=== PATIENT | male | born 1965 | race Caucasian/White ===

== ENCOUNTER 2024-09-03 21:56 | Inpatient (IN) | payer MEDICAID, SELFPAY ==
[2024-09-03] VITALS (10 sets, daily range): BP systolic 188–235; BP diastolic 111–148; BMI 26.6; BMI 26.1
--- NOTE | 2024-09-03 20:46 | ED.CVA ---
History of Present Illness
General
Chief Complaint: CVA/TIA Symptoms
Source: ambulance crew
Exam Limitations: other (Severe aphasia)
Time Seen by Provider: 09/03/24 20:31
Nursing documentation reviewed up to this point in time: agreed with
Onset of Stroke Symptoms
Onset of symptoms known: No
Time pt last seen normal is known: Yes
Date last time pt seen normal: 09/02/24
Time last time pt seen normal: 19:00
History of Present Illness
History of Present Illness:
The patient is a 59-year-old man who presents with acute right body paralysis and severe aphasia. Patient arrives on a prehospital stroke alert. Reportedly according to his friend, he left spoke to the patient earlier 7 PM last night and the
patient sounded normal over the phone. His friend reports that he tried to call the patient today and when the patient did not answer the phone, he went over to his home to check up on him. When he found the patient his evening, patient was
crawling on the ground and was unable to speak. The patient arrives arousable with a leftward gaze and right-sided neglect. He is unable to provide a history
Past History
Past History
ED Past Medical History: None
ED Past Surgical History: Other
Social History
Tobacco: Smoker
Alcohol: Other
Drug: None
Personal: Other
Living: alone
Employment: Other
Family History
Family History: Other
Review of Systems
Review of Systems
Allergies reviewed?: Yes
Unable to obtain full review of systems at this time due to: non-verbal
Other source history: other (Friend who arrives at the bedside)
All Other Systems: Not applicable
Phy Exam
Physical Exam
Physical Exam:
Physical Exam
General: Patient arrives awake but with leftward gaze. Right facial droop
Neck: supple.
Heart: s1/s2 regular rate and rhythm, no murmur. equal radial pulses.
Lungs: no acute respiratory distress.
Abdomen: normal bowel sounds. not tender. no CVAT
Neuro: alert. All sounds are incomprehensible. Right facial droop. No movement of right arm and right leg. Leftward gaze. 5 out of 5 strength in left arm and left leg, able to follow commands
Skin: no rash
Psychiatric: well kept. interactive and cooperative
Extremities: no edema. no calf tenderness. negative homans. good distal pulses
Scores
NIH Stroke Score
Level of Consciousness: 0 - Alert
LOC Questions: 2-Neither correct
LOC Commands: 0-Performs both correctly
Best Horizontal Gaze: 0-Normal
Visual Moser: 2=Full hemianopia
Facial Palsy: 3=Complete paralysis
Motor - Right Arm: 4=No movement
Motor - Left Arm: 0=No drift 10 seconds
Motor - Right Le-No movement
Motor - Left Le-No drift 5 seconds
Limb Ataxia: 0-Absent
Sensation: 1-Mild loss
Best Language: 2-Severe aphasia
Dysarthria: 2-Severe slurring
Extinction and Inattention: 2-Total kinsey inattention
NIH Total Score:: 22
Thrombolytic Contraindication
Inclusion and Exclusion criteria reviewed: Yes
Reasons for NON-Tx with Thrombolytics ABSOLUTE Exclusions: Greater than 4.5 hrs from onset of sxs
Course
Orders/Labs/Results
Orders:
Orders
09/03/24 20:31
CT BRAIN PERF STROKE ALERT Urgent
Comment:
Reason For Exam: L sided paralysis
CT HEAD STROKE ALERT W/o Cont Urgent
Comment:
Reason For Exam: L sided paralysis
CT HEAD/NECK ANG STROKE ALERT Urgent
Comment:
Reason For Exam: L sided paralysis
09/03/24 20:45
Electrocardiogram (*1) Urgent
Reason for Study: TIA/Stroke
EKG- Treatment ONCE
09/03/24 20:52
Complete Blood Count/With Diff Urgent
Comprehensive Metabolic Panel Urgent
PTT Urgent
Prothrombin Time Urgent
09/03/24 21:20
Aspirin 300 mg RECTAL NOW STA
09/03/24 21:44
Admit/Transfer Patient As Directed
Co-Sign Provider:
Level of Care: Inpatient admission
Assign to:: Telemetry
Physician / Group: alexandrea
Diagnosis: cva
Reason for Telemetry: Arrhythmia
Date to Stop Telemetry: 09/06/24
Time to Stop Telemetry: 11:00
Reason for Hospitalization: cva
Expected length of stay greater than two midnights?: Yes
ELOS- Estimated Length of Stay in days: 2
I certify the patient meets the requirements for IP care: Yes
Code Status As Directed
Resuscitation Status: Full Code
PRN Pain Medication Management As Directed
May give lesser potent ordered pain med per pt: Yes
preference::
Protocol:: Medication orders for pain may be administered in a
manner that supports deferring to patient preference
when the pt is:
- Requesting an ordered lesser potent pain medication.
Least to most potent pain medications are defined
as: acetaminophen < NSAID < tramadol < opioids
(morphine, oxycodone, hydromorphone).
- Requesting a lesser dose of the same medication IF
ORDERED.
- Requesting a less intrusive route of administration
if both routes are prescribed by the provider (PO <
IV).
09/06/24 11:00
DC Protocol for Telemetry ONCE
Abnormal Lab Results
09/03/24 09/03/24
20:52 20:53
WBC 11.7 H 10^3/uL
(4.8-10.8)
Absolute Neuts (auto) 7.4 H 10^3/uL
(1.4-6.5)
Absolute Monos (auto) 1.1 H 10^3/uL
(0.1-0.6)
POC Glucose 69 L mg/dl
(70-99)
09/03/24 20:52
09/03/24 20:52
Vital Signs
Initial and Last Documented VS:
Initial Vital Signs
BP
235/129
09/03/24 20:54
Last Documented Vital Signs
Pulse Resp BP Pulse Ox
75 13 219/148 95
09/03/24 23:00 09/03/24 23:00 09/03/24 23:00 09/03/24 21:40
MDM/Problems Addressed
Differential Diagnosis Includes:
Intracranial hemorrhage, ischemic stroke, intra cranial tumor
MDM/Problems Addressed:
Patient presents with acute right-sided paralysis and aphasia
Acute Exacerbation and/or Progression of Chronic Illness:
Patient is acutely hypertensive which may be causing stroke
Acute Exacerbation and/or Progression of Chronic Illness: HTN
*Radiology
Radiology exam reviewed: radiology read reviewed
*Pulse Oximetry
Patient hypoxic: no
*EKG
Interpreted by ED Provider?: Yes
Interpretation: normal
Comparison EKG: no comparison EKG present
Rate: normal
Rhythm: sinus
[place]: left axis deviation
Interval: normal interval
QRS Pattern: normal QRS
Ischemia: no ischemia
*Gis Consultant Interpretation
Rate: normal
Interpretation: normal
Rhythm: sinus
*Critical Care Note
Total Time (30-74mins, 75-104mins- exclusive of procedures): 64 minutes
comment:
64 minutes of critical care given to the patient including frequent reassessments of his mental status, NIH score, speaking to his friend who is at the bedside, as well as speaking to the hospitalist at [place] and the neurology fellow at [facility]
Data Reviewed
Source: other (Friend who is at the bedside)
Prescriptions/Medications Considered But Not Given:
Considered TNK, however, patient is outside the window
Patient Management
Social determinants of health affecting care: Living situation and Strong social support
Discussion with other providers: Hospitalist and Other (Neurology fellow at [facility] who did not feel that there was a large vessel occlusion to warrant IAT. Recommended aspirin. No TNK, no Plavix)
Escalation/DeEscalation of care consider admission/obs:
Patient will be admitted for severely debilitating stroke
ED Attending Note
-
Portions of this chart may have been created with voice recognition software.� Occasional wrong word or��sound alike� substitutions may have occurred due to the inherent limitations of voice recognition software.
Discharge Plan
Departure
Patient Disposition: Admit
Date of Disposition: 09/03/24
Time of Disposition: 21:21
Admit to: Telemetry
Presentation/result/management discussed w/ accepting MD/DO: Hospitalist
Patient with high blood pressure during this ER visit?: Yes
Condition: Critical
Covid-19: Not Applicable
Discharge Problem:
Acute ischemic CVA
Interventions
Interventions:
*Risk Screen - Suicide Last Done: 09/03/24 20:37
*General Assessment Last Done: 09/03/24 20:37
*Neglect/Abuse Screening Last Done: 09/03/24 20:43
*ED COVID-19 Vaccine History Last Done: 09/03/24 20:43
*Nursing Disposition Last Done: 09/03/24 23:22
ED- Pulmonary Assessment Last Done: 09/03/24 21:06
ED- Neurological Assessment Last Done: 09/03/24 20:57
ED- Cardiac Assessment Last Done: 09/03/24 21:06
Discharge Date and Time
Discharge Date/Time: 09/03/24 23:23
[2024-09-03 20:54] LABS: Glucose - Point of Care 69 mg/dl (70-99)
[2024-09-03 21:04] LABS: % Basophils 0.5 % (0-2); % Eosinophils 2.9 % (0-6); % Immature Granulocytes 0.2 % (0-0.5); % Lymphocytes 24.1 % (20.5-51.1); % Monocytes 9.3 % (1.7-9.3); Absolute Basophils 0.1 10^3/uL (0-0.2); Absolute Eosinophils 0.3 10^3/uL (0-0.7); Absolute Lymphocytes 2.8 10^3/uL (1.2-3.4); Absolute Monocytes 1.1 10^3/uL (0.1-0.6); Absolute Neutrophils 7.4 10^3/uL (1.4-6.5); Hematocrit 51.6 % (39.0-52.0); Hemoglobin 17.6 g/dL (13.0-18.0); Mean Corp Hgb Conc. 34.1 g/dL (33.0-37.0); Mean Corpuscular Hgb 30.2 pg (27.0-31.0); Mean Corpuscular Volume 88.7 fL (80.0-94.0); Mean Platelet Volume 8.6 fL (7.4-10.4); Nucleated Red Blood Cells % 0 % (-); Platelet Count 351 10^3/uL (130-400); Red Blood Cell Count 5.82 10^6/uL (4.70-6.10); Red Cell Dist. Width 12.7 % (11.5-14.5); White Blood Cell Count 11.7 10^3/uL (4.8-10.8)
[2024-09-03 21:16] LABS: ALT (SGPT) 30 U/L (0-50); AST (SGOT) 31 U/L (17-59); Albumin 4.6 g/dl (3.5-5.0); Alkaline Phosphatase 102 U/L (38-126); Blood Urea Nitrogen 13 mg/dl (9-20); Calcium 9.8 mg/dl (8.4-10.2); Carbon Dioxide 26 mmol/L (22-30); Chloride 106 mmol/L (98-107); Estimated Creatinine Clearance 96 ml/min; Glucose 94 mg/dl (70-99); Potassium 3.8 mmol/L (3.5-5.1); Sodium 140 mmol/L (135-145); Total Bilirubin 1.2 mg/dl (0.2-1.3); Total Protein 7.7 g/dl (6.3-8.2); eGFR > 60.00
[2024-09-03 21:18] LABS: INR 0.96; PT 13.1 Sec (11.4-14.6)
[2024-09-03 21:19] LABS: APTT 30.9 Sec (23.4-35.0)
[2024-09-03] MEDS: ASPIRIN 300 MG RECTAL (21:24)
--- NOTE | 2024-09-03 21:49 | HPS.HSE ---
Addendum entered and electronically signed by Aaliyah Talley MD 09/03/24 21:51:
Hypertensive Urgency
-PRN Labetalol for keep SBP under 220
Original Note:
Family Physician
-
Family Physician: NO INTERVIEW UNKNOWN
Chief Complaint
-
neurological symptoms
History of Present Illness
59-year-old male without any past medical history presenting with severe neurological impairment.
History is obtained from patient's close friend. Patient's friend last spoke to the patient at around 5 to 7 PM last night and he was in his normal state of health then. Today he arrived at the patient's house or at 7 PM and the lights were off
and he was confused and thrashing about with difficulty speaking and facial droop.
He was noted to have significant neurological impairment with right-sided paralysis, leftward gaze preference, facial droop and inability to speak. Patient can understand language and follow some basic commands but unable to articulate. Patient is
very frustrated with his severe logical deficits.
He smokes half a pack of cigarettes per day. Does not drink alcohol or use any drugs.
No family history of strokes or cardiac problems.
No prior surgeries. 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
Medical History
Past Medical History
Past Medical History: Reports None
Past Surgical History: Reports None
Social History
Tobacco: Smoker
Alcohol: None
Drug: None
Family History
Family History: Not pertinent
Allergies / Home Medications
Allergies reflects when Allergies were last updated in [facility].
Home Medications with original date entered in [facility]
Allergy/Medication List:
Allergies
Allergy/AdvReac Type Severity Reaction Status Date / Time
NKA - No Known Allergies Allergy Unknown Uncoded 09/03/24 20:36
Review of Systems
-
History Source: Patient
A 12 point ROS was completed and negative except as noted: Yes
Constitutional: Reports No Symptoms
EENT: Reports No Symptoms
Respiratory: Reports No Symptoms
Cardiac: Reports No Symptoms
Abdomen/GI: Reports No Symptoms
: Reports No Symptoms
Musculoskeletal: Reports No Symptoms
Skin: Reports No Symptoms
Neurological: Reports See HPI
Endocrine: Reports No Symptoms
Hematologic/Lymphatic: Reports No Symptoms
Psych: Reports No Symptoms
Physical Exam
Vital Signs
Vital Signs
Pulse Resp BP Pulse Ox
85 14 219/133 94
09/03/24 21:30 09/03/24 21:30 09/03/24 21:23 09/03/24 21:30
Physical Exam
General: Well Developed, Well Nourished and No Apparent Distress
HEENT: NormoCephalic, Moist mucous membranes and Atraumatic
Respiratory: Clear
Cardiac: S1/S2 and Regular Rhythm; No Murmur or Rub
GI: Soft, Non Tender, Non Distended and Normal Bowel Sounds; No Organomegaly
Rectal: Deferred by Provider
Musculoskeletal: No Clubbing, No Cyanosis and No Edema
Skin: No Rash
Neuro: Nonfocal/grossly intact
Laboratory Results
-
09/03/24 20:52
09/03/24 20:52
Laboratory Results
PT 13.1 Sec (11.4-14.6) 09/03/24 20:52
INR 0.96 09/03/24 20:52
APTT 30.9 Sec (23.4-35.0) 09/03/24 20:52
Total Bilirubin 1.2 mg/dl (0.2-1.3) 09/03/24 20:52
AST 31 U/L (17-59) 09/03/24 20:52
ALT 30 U/L (0-50) 09/03/24 20:52
Alkaline Phosphatase 102 U/L (38-126) 09/03/24 20:52
Data Reviewed
-
Lab Data: Labs Reviewed by me
Old Records: Reviewed
Impression/Plan
-
IMPRESSION:
PLAN:
# Acute CVA with severe neurological impairment
- Last seen normal at 7 PM yesterday
- Aphasic and paralyzed on the right side with leftward gaze preference, NIH of 25
-CTA head and neck shows no acute vascular pathology, moderate old right frontal lobe infarct, old pontine lacunar infarcts
- ER spoke with neurology at [facility] who felt no intervention will be beneficial
- Rectal aspirin only was recommended, and was recommended to keep blood pressure around 220 systolic, as needed labetalol
- strict N.p.o.
-Check A1c and lipid panel
- Check speech and swallow
- Check MRI brain
- PT OT
-low dose Ativan for agitation and frustration if needed
- Neurology consulted
Active smoker
Full code
DVT prophylaxis�SCDs
N.p.o.
[2024-09-04] VITALS (9 sets, daily range): BP systolic 173–225; BP diastolic 110–140
[2024-09-04] MEDS: TRANDATE 10 MG IV ×2 (00:10→08:09)
[2024-09-04 00:27] LABS: HDL Cholesterol 63 mg/dl; LDL Cholesterol, Calculated 95 mg/dl; Total Cholesterol 175 mg/dl (50-199); Triglyceride 85 mg/dl (10-149); Very Low Density Lipoprotein 17 mg/dl (0-30)
--- NOTE | 2024-09-04 08:08 | CON.NEURO ---
Neuro Assessment/Plan
Assessment
CTA was unremarkable
CT of the head failed to demonstrate significant abnormality
CT P demonstrated significant penumbra
The above CTP is consistent with the patient's right hemibody deficit. The patient was determined by the covering telestroke service to not be a candidate for tenecteplase and was not a candidate for clot retrieval due to absence of a clot for
retrieval.
Sudden onset of right hemibody weakness after being found unresponsive for an unclear timeframe. The most likely diagnosis is a large left MCA territory acute ischemic stroke. Potential etiologies for this stroke include hypertension and
dyslipidemia
Plan
Goal of permissive hypertension until 24 hours after admission, treat blood pressures over than 220/120, then normotension
Provide medical educational materials
Rehabilitation evaluations and treatment
Provide aspirin 300 mg per rectum as the patient is not clearly able to take by mouth medications
Would not add clopidogrel to this patient's therapy due to the likely large size stroke
Eventually, when patient able to take by mouth, provide atorvastatin 80 mg daily due to LDL greater than 70
Reviewed with the patient's mother, at bedside, was likely need for parent Elder access. If the patient continues to fail access by mouth, will need to have PEG tube placed
Check echocardiogram
Eventual implanted surveillance monitor will be needed to evaluate for arrhythmias
Will follow
Consultation
Order
Date of Consultation: 09/04/24
Requesting Provider: Hospitalists
Reason for Consult: Right-sided hemiplegia, stroke alert
Subjective/Objective
Subjective Data
Date of Service: September 04, 2024
Right-handed
According to medical records, the patient's presented to the hospital's emergency department after greater than 24 hours having been seen as last known well. At that time, approximately 1700 hrs. the day before presentation patient was described as
confused by his friend. The patient was subsequently discovered as having right hemiplegia with left-sided gaze preference and aphasia. A stroke alert was activated. The patient himself is unable to provide his own medical history.
Fluid on left elbow for past 9 days ago.
Objective Data
Vital Signs
Temp Pulse Resp BP Pulse Ox
36.3 C 72 16 201/135 95
09/04/24 03:04 09/04/24 03:04 09/04/24 03:04 09/04/24 03:04 09/04/24 03:13
PT 13.1 Sec (11.4-14.6) 09/03/24 20:52
INR 0.96 09/03/24 20:52
APTT 30.9 Sec (23.4-35.0) 09/03/24 20:52
Sodium 140 mmol/L (135-145) 09/03/24 20:52
Potassium 3.8 mmol/L (3.5-5.1) 09/03/24 20:52
BUN 13 mg/dl (9-20) 09/03/24 20:52
Glucose 94 mg/dl (70-99) 09/03/24 20:52
Calcium 9.8 mg/dl (8.4-10.2) 09/03/24 20:52
LDL Cholesterol, Calc Cancelled 09/03/24 23:39
Patient Allergies
NKA - No Known Allergies Allergy (Uncoded 09/03/24 20:36)
Unknown
CVA Assessment
Onset of Stroke Symptoms
Onset of symptoms known: No
Date of onset of symptoms: 09/03/24
Time pt last seen normal is known: Yes
Date last time pt seen normal: 09/03/24
Time last time pt seen normal: 19:00
NIH Stroke Score
Level of Consciousness: 1 - Arousable
LOC Questions: 2-Neither correct
LOC Commands: 1-Performs one correctly
Best Horizontal Gaze: 1-Partial gaze palsy
Visual Moser: 0=Normal, no visual loss
Facial Palsy: 0=Normal, symmetrical
Motor - Right Arm: 4=No movement
Motor - Left Arm: 0=No drift 10 seconds
Motor - Right Le-No movement
Motor - Left Le-No drift 5 seconds
Limb Ataxia: 0-Absent
Sensation: 0-Normal
Best Language: 3-Mute/global aphasia
Dysarthria: 0-Normal
Extinction and Inattention: 0-No abnormality
NIH Total Score:: 16
Tenecteplase Contraindications
Inclusion and Exclusion criteria reviewed: Yes
Reasons for NON-Tx with Thrombolytics ABSOLUTE Exclusions: Time-out of window
IAT Contraindications: >6 hrs from onset/last seen normal and Imaging doesn't show large vessel occlusion as cause of stroke
Review of Systems
-
Unable to obtain full review of systems at this time due to: Aphasia
History Source: Patient
All other systems: Reviewed and negative
Physical Exam
-
General: No Apparent Distress and Appears Stated Age
Eyes: Round OU, [place] Conjunctivae and No Ptosis; Negative Able to visualize OU
HEENT: Anicteric and Moist Mucous Membranes
Neck: Full Range of Motion
Respiratory: No Dyspnea
Cardiac: No JVD
GI: Non-distended
Skin: Unremarkable
Extremities: No Clubbing, No Cyanosis and No Edema
Psych: Unable to Assess
Extended Neurological Exam
Mood & Affect: Unable to Assess
Attention Span & Concentration: Awake and Unable to Perform 2 Step Request; Negative Alert, Interactive or Unresponsive to Physical Stimuli
Memory: Unable to Assess
Tremor: Hand Tremor Absent and Head Tremor Absent
Involuntary Movement: None
Speech: Mute
Cranial Nerve II: Left Eye: Pupillary Reactivity Unremarkable, Pupillary Size Unremarkable and Unable to Assess Visual Moser
Cranial Nerve II: Right Eye: Pupillary Reactivity Unremarkable, Pupillary Size Unremarkable and Unable to Assess Visual Moser
Cranial Nerves III, IV, : Extraocular Movement: Other (Gaze preference to the left at times going to midline conjugately)
Cranial Nerve VII: Facial Symmetry: Normal Facial Symmetry
Cranial Nerve VIII: Hearing: Unable to Assess
Cranial Nerves IX, X: Palate Movement: Unable to Assess
Cranial Nerve XI: Shoulder Shrug: Unable to Assess
Cranial Nerve XII: Tongue Protusion: Unable to Assess
Muscle Strength, Overall: Absent (Right arm and leg movement) and Spontaneously Moves (Left arm and leg movement)
Muscle Bulk & Tone: Bulk Unremarkable and Tone Unremarkable
Pronator Drift: Negative Drift in Left Upper Extremity or Drift in Left Lower Extremity
Deep Tendon Reflexes: Trace Throughout
Cold Sensation: Unable to Assess
Vibration Sensation: Unable to Assess
Touch Sensation: Unremarkable
Coordination: Unable to Assess
Babinski Sign: Absent Bilaterally
Gait & Station: Unable to Assess
Data Reviewed
-
CT-A: Report Reviewed
CT-Perfusion: Report Reviewed and Image Reviewed
CT Head: Report Reviewed and Image Reviewed
Labs: Report Reviewed
Reviewed with: Physician and Family
Old Records: Summarized
Medications
-
Active Medications
Generic Name Dose Route Start Last Admin
Trade Name Freq PRN Reason Stop Dose Admin
Aspirin 300 mg 09/04/24 08:00
Aspirin 300 Mg Rectal Suppository RECTAL 10/02/24 07:59
DAILY ASHLY
Labetalol HCl 10 mg 09/03/24 23:39 09/04/24 00:10
Labetalol Hcl 5 Mg/1 Ml (20 Mg/4 Ml) Injection IV 10/01/24 23:38 10 mg
Q6HPRN PRN Administration
SBP> 220
Lorazepam 0.5 mg 09/03/24 23:39
Lorazepam 2 Mg/Ml Vial IV 10/01/24 23:38
Q8HPRN PRN
agitation
Sodium Chloride 0 flush 09/03/24 23:00
Sodium Chloride 0.9% (Flush) Syringe IV 10/01/24 22:59
PER PROTOCOL ASHLY
Sodium Chloride 0.25 ml 09/03/24 23:41
Nss (Pf) 10 Ml Vial For Ativan 0.5 Mg Dose IV 10/01/24 23:40
Q8HPRN PRN
IV LORAZEPAM DILUTION
Past History
Past History
ED Past Medical History: None
ED Past Surgical History: Other
Social History
Tobacco: Smoker
Alcohol: Other (unknown)
Drug: None
Personal: Other
Living: alone
Employment: Other
Family History
Family History: Other (reviewed and non-contributory)
[2024-09-04 08:50] LABS: % Basophils 0.5 % (0-2); % Eosinophils 2.2 % (0-6); % Immature Granulocytes 0.4 % (0-0.5); % Lymphocytes 12.3 % (20.5-51.1); % Monocytes 7.9 % (1.7-9.3); % Neutrophils 76.7 % (42.2-75.2); Absolute Basophils 0.1 10^3/uL (0-0.2); Absolute Eosinophils 0.3 10^3/uL (0-0.7); Absolute Immature Granulocytes 0.1 10^3/uL (0-0.05); Absolute Lymphocytes 1.7 10^3/uL (1.2-3.4); Absolute Monocytes 1.1 10^3/uL (0.1-0.6); Absolute Neutrophils 10.7 10^3/uL (1.4-6.5); Hematocrit 49.4 % (39.0-52.0); Hemoglobin 17.1 g/dL (13.0-18.0); Mean Corp Hgb Conc. 34.6 g/dL (33.0-37.0); Mean Corpuscular Hgb 30.8 pg (27.0-31.0); Mean Corpuscular Volume 88.8 fL (80.0-94.0); Mean Platelet Volume 8.8 fL (7.4-10.4); Nucleated Red Blood Cells % 0 % (-); Platelet Count 367 10^3/uL (130-400); Red Blood Cell Count 5.56 10^6/uL (4.70-6.10); Red Cell Dist. Width 12.6 % (11.5-14.5)
--- NOTE | 2024-09-04 08:55 | W.PN.HOSP.TC ---
Today's Communication/Plan
-
Rectal aspirin
Statin when able to tolerate
Echo with bubble study
Follow-up MRI
PT/OT/COMPUTER SECURITY COORDINATOR
D5 half-normal saline
NIHSS/neurochecks
Assessment / Plan
Assessment / Plan
#Acute CVA with severe neurologic impairment
-Differentials include cardioembolic disease, less likely atheroembolic v. paradoxical v. HTN
-CTA showed previous right frontal infarct and pontine lacunar infarcts; no ASCVD or LVO
-CT perfusion scan shows significant sized infarct of left parieto-occipital region
-Symptomatically has right hemiparesis, expressive aphasia, gaze abnormality
-Was started on rectal aspirin upon arrival; MRI pending; LDL 95, A1c 5.6%
-Started on permissive hypertension, PRN for SBP > 220
-NIHSS remains very high, >20
Plan
-Follow-up MRI brain without contrast
-Continue rectal aspirin and start oral statin when possible, LDL goal < 70
-Continue with permissive hypertension and as needed labetalol for SBP >220
-Continue with permissive hypertension to 24-48 hours postevent, avoid hypotension
-Monitor on telemetry and obtain TTE w/ microbubbles
-Continue to monitor NIHSS and neurocheck
-NPO, IV maintenance fluids; ongoing PT/OT/COMPUTER SECURITY COORDINATOR
-Likely will need Linq device
#Hypertension
-BP elevated here, presence of lacunar infarcts on CT likely correlate with chronic hypertension
-Not currently on any antihypertensive agents at home
-Currently undergoing permissive HTN for large CVA
-Should be started on CCB + ARB/ACEi if BP remains high after permissive HTN
#Tobacco use
-Encourage absolute smoking cessation
-Nicotine patches ordered if needed
Diet: NPO; D5 + 1/2NSS
DVT prophylaxis: SCDs, rectal aspirin
CODE STATUS: Full code
Anticipated Discharge: > 48 hours
Subjective/Interval History
-
Date of Service: September 04, 2024
Seen and examined at the bedside. No acute events reported since admission. Remains hypertensive though at goal with SBP near 220, otherwise stable and afebrile on RA
LDL returned 95, A1c 5.6%. Patient remains with significant right-sided and other neurologic deficits
MRI pending. Unable to obtain ROS due to aphasia
Objective Data
-
Labs:
Laboratory Results
09/03/24 09/04/24
20:52 08:14
WBC 11.7 H 14.0 H
Hgb 17.6 17.1
Hct 51.6 49.4
Plt Count 351 367
PT 13.1
INR 0.96
APTT 30.9
Sodium 140 Pending
Potassium 3.8 Pending
Chloride 106 Pending
Carbon Dioxide 26 Pending
BUN 13 Pending
Creatinine 0.9 Pending
Glucose 94 Pending
Calcium 9.8 Pending
Total Bilirubin 1.2 Pending
AST 31 Pending
ALT 30 Pending
Alkaline Phosphatase 102 Pending
Vital Signs:
Vital Signs
Temp Pulse Resp BP Pulse Ox
98.1 F 71 16 221/128 93
09/04/24 07:20 09/04/24 08:09 09/04/24 07:20 09/04/24 08:09 09/04/24 07:20
Review of Systems
-
Unable to obtain full review of systems at this time due to: Acuity and Patient Non-verbal
Physical Exam
-
General: Well Developed and Well Nourished; Negative Pain or Sweats
HEENT: Normocephalic, Atraumatic, Moist Mucous Membranes and Anicteric
Respiratory: Clear to Auscultation and Non Labored Respirations; Negative Accessory Resp Muscle Use
Cardiac: Regular Rhythm and S1/S2; Negative Murmur, Rub or Gallop
GI: Soft, Nontender, Nondistended and Normal Bowel Sounds
Musculoskeletal: No Clubbing, No Cyanosis and No Edema
Skin: Warm, Dry and Normal Turgor; Negative Rash
Neuro: Awake, Alert and Other (Right-sided flaccid paresis, expressive aphasia, facial droop)
Psych: Other (Frustrated)
Data Reviewed
-
MRI: Discussed with Physician and Discussed with Family
Labs: Labs Reviewed by me and Discussed with Family
[2024-09-04 09:37] LABS: ALT (SGPT) 28 U/L (0-50); AST (SGOT) 30 U/L (17-59); Albumin 4.7 g/dl (3.5-5.0); Alkaline Phosphatase 101 U/L (38-126); Blood Urea Nitrogen 13 mg/dl (9-20); Calcium 9.5 mg/dl (8.4-10.2); Carbon Dioxide 27 mmol/L (22-30); Chloride 106 mmol/L (98-107); Estimated Creatinine Clearance 108 ml/min; Glucose 113 mg/dl (70-99); Potassium 4.1 mmol/L (3.5-5.1); Sodium 141 mmol/L (135-145); Total Bilirubin 1.3 mg/dl (0.2-1.3); Total Protein 7.7 g/dl (6.3-8.2); eGFR > 60.00
[2024-09-04] MEDS: ASPIRIN 300 MG RECTAL (09:42)
[2024-09-04 09:49] LABS: Glycohemoglobin (HgbA1c) 5.6 % (4.0-5.6)
[2024-09-04] MEDS: TRANDATE 5 MG IV (10:37)
--- NOTE | 2024-09-04 13:44 | PTOTSP ---
SPEECH THERAPY SWALLOW EVALUATION:
Patient exhibits clinical signs of severe oropharyngeal dysphagia, likely acutely related to acute CVA. Patient remains at HIGH RISK for aspiration and related complications given confusion/lethargy. Recommend strict NPO at this time; Consider
temporary alternate means for nutrition/medication/hydration. Non-oral medications recommended. Oral care 3x/day and increased mobility as able/tolerated. ST to follow, determine readiness for oral diet and/or instrumental assessment of swallowing
as appropriate, and provide swallow therapy as appropriate.
Patient exhibits severe speech/language/cognitive communication impairments characterized by global aphasia with both severe expressive and receptive language impairments. Intensive ST services are indicated at the acute care level and continued
upon discharge.
RECOMMEND:
1) strict NPO
2) Consider temporary alternate means for nutrition/medication/hydration. Non-oral medications recommended
3) Oral care 3x/day and increased mobility as able/tolerated
4) Intensive ST services are indicated at the acute care level and continued upon discharge
5) ST to follow, determine readiness for oral diet and/or instrumental assessment of swallowing as appropriate
[2024-09-04] MEDS: D5/0.45%NACL 1000 IV (14:06)
[2024-09-04] MEDS: NICODERM TRANSDERMAL 14 MG TRANSDERM (15:58)
[2024-09-04] MEDS: LIPITOR PO (17:35)
[2024-09-05] VITALS (7 sets, daily range): BP systolic 174–210; BP diastolic 117–135
[2024-09-05] MEDS: D5/0.45%NACL 1000 IV ×2 (01:00→10:25)
[2024-09-05] MEDS: ATIVAN 0.5 MG IV (01:29)
[2024-09-05 08:00] LABS: % Basophils 0.6 % (0-2); % Eosinophils 4.2 % (0-6); % Immature Granulocytes 0.4 % (0-0.5); % Neutrophils 65.8 % (42.2-75.2); Absolute Basophils 0.1 10^3/uL (0-0.2); Absolute Eosinophils 0.5 10^3/uL (0-0.7); Absolute Immature Granulocytes 0.1 10^3/uL (0-0.05); Absolute Lymphocytes 2.2 10^3/uL (1.2-3.4); Absolute Monocytes 1.3 10^3/uL (0.1-0.6); Absolute Neutrophils 7.9 10^3/uL (1.4-6.5); Hematocrit 47.7 % (39.0-52.0); Hemoglobin 16.1 g/dL (13.0-18.0); Mean Corp Hgb Conc. 33.8 g/dL (33.0-37.0); Mean Corpuscular Hgb 30.4 pg (27.0-31.0); Mean Corpuscular Volume 90.2 fL (80.0-94.0); Mean Platelet Volume 8.9 fL (7.4-10.4); Nucleated Red Blood Cells % 0 % (-); Platelet Count 308 10^3/uL (130-400); Red Blood Cell Count 5.29 10^6/uL (4.70-6.10); Red Cell Dist. Width 12.7 % (11.5-14.5)
[2024-09-05] MEDS: ASPIRIN 300 MG RECTAL (08:11)
[2024-09-05 08:17] LABS: Blood Urea Nitrogen 13 mg/dl (9-20); Carbon Dioxide 25 mmol/L (22-30); Chloride 108 mmol/L (98-107); Estimated Creatinine Clearance 96 ml/min; Glucose 109 mg/dl (70-99); Sodium 140 mmol/L (135-145); eGFR > 60.00
[2024-09-05] MEDS: NICODERM TRANSDERMAL 14 MG TRANSDERM (08:23)
--- NOTE | 2024-09-05 11:11 | W.PN.HOSP.TC ---
Today's Communication/Plan
-
see A/P
Assessment / Plan
Assessment / Plan
A/P:
# Acute CVA with severe neurologic impairment
Symptomatically with right hemiparesis, expressive aphasia, gaze abnormality
Differential strokes include cardioembolic disease (most likely), versus atheroembolic versus paradoxical versus HTN
CTA showed previous right frontal infarct and pontine lacunar infarcts; no ASCVD or LVO
CT perfusion scan shows significant sized infarct of left parieto-occipital region
Follow MRI brain
Follow TTE w/ microbubbles
Cont rectal aspirin
LDL 95, A1c 5.6%
Started Lipitor 40 mg (LDL goal < 70)
Allow permissive hypertension, PRN for SBP > 220
NPO per SPL, IV maintenance fluids with D5WNSS
Continue to monitor NIHSS and neurocheck
ongoing PT/OT/[employer]YEAR STITCHER eval
Likely will need Linq device
# Hypertension
BP elevated here, presence of lacunar infarcts on CT likely correlate with chronic hypertension
Not currently on any antihypertensive agents at home
Currently undergoing permissive HTN for large CVA
Should be started on CCB + ARB/ACEi if BP remains high after permissive HTN
# Tobacco use
Encourage absolute smoking cessation
Nicotine patches ordered if needed
Diet: NPO; D5W with NSS
DVT prophylaxis: SCDs, rectal aspirin
CODE STATUS: Full code
DW mother at bedside
total time 51 min
Anticipated Discharge: > 48 hours
Subjective/Interval History
-
Date of Service: September 05, 2024
Objective Data
-
Labs:
Laboratory Results
09/05/24
06:25
WBC 12.0 H
Hgb 16.1
Hct 47.7
Plt Count 308
Sodium 140
Potassium 4.0
Chloride 108 H
Carbon Dioxide 25
BUN 13
Creatinine 0.9
Glucose 109 H
Calcium 9.0
Vital Signs:
Vital Signs
Temp Pulse Resp BP Pulse Ox
36.8 C 68 18 174/128 97
09/05/24 07:47 09/05/24 07:47 09/05/24 07:47 09/05/24 07:47 09/05/24 07:47
I&O
09/04/24 09/05/24 09/06/24
06:59 06:59 06:59
Intake Total 1200 / 1200
Balance 1200 / 1200
Review of Systems
-
Unable to obtain full review of systems at this time due to: Acuity and Patient Non-verbal
Physical Exam
-
General: Well Developed and Well Nourished; Negative Pain or Sweats
HEENT: Normocephalic, Atraumatic, Moist Mucous Membranes and Anicteric
Respiratory: Clear to Auscultation and Non Labored Respirations; Negative Accessory Resp Muscle Use
Cardiac: Regular Rhythm and S1/S2; Negative Murmur, Rub or Gallop
GI: Soft, Nontender, Nondistended and Normal Bowel Sounds
Musculoskeletal: No Clubbing, No Cyanosis and No Edema
Skin: Warm and Dry; Negative Rash
Neuro: Awake, Alert and Other (Right-sided flaccid paresis, expressive aphasia, facial droop)
Psych: Calm
Data Reviewed
-
CT Scan: Report Reviewed by me
Labs: Labs Reviewed by me
[2024-09-05] MEDS: D5/0.9% SODIUM CHLORIDE 1000 IV ×2 (12:26→22:03)
--- NOTE | 2024-09-05 15:31 | PTCARENOTE ---
Pt and his belongings were transferred to room 427. Report was given to KAEL Whatley.
[2024-09-05] MEDS: LIPITOR PO (15:53)
--- NOTE | 2024-09-05 16:40 | CM ---
Met with patient's mother to obtain information for assessment. Patient's mother stated that patient lives in a one story house with two steps to enter by himself. He was independent with all ADLs, personal care, dressing and bathing. 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 He was driving and was able to transport himself to his appointments and did all of his own shopping. He has no DME. He has not been to a SNF. He has never had VN services.
Patient is self pay. Will need to call [facility] rep. Patient will need rehab. Will await indication from medical staff.
Plan: Case management will continue to follow and assist with discharge planning. Patient will need rehab. Unclear at this time
[2024-09-06] VITALS (11 sets, daily range): BP systolic 159–218; BP diastolic 99–132; PULSE 72; BMI 26.1
[2024-09-06] MEDS: TRANDATE 10 MG IV ×3 (03:35→20:27)
--- NOTE | 2024-09-06 05:15 | PTCARENOTE ---
0335 Pt's BP: 218/132 HR: 74, prn labetolol given. Pt's condition unchanged.
0505 Pt's BP: 211/127 HR: 75. Pt's condition unchanged. David LAM notified. x1 dose hydralazine given. nsr on tele.
[2024-09-06] MEDS: APRESOLINE 5 MG IV (05:22)
[2024-09-06] MEDS: APRESOLINE 10 MG IV ×3 (07:17→23:21)
[2024-09-06] MEDS: D5/0.9% SODIUM CHLORIDE 1000 IV ×2 (07:18→18:13)
[2024-09-06 08:08] LABS: Hematocrit 46.7 % (39.0-52.0); Hemoglobin 16.1 g/dL (13.0-18.0); Mean Corp Hgb Conc. 34.5 g/dL (33.0-37.0); Mean Corpuscular Hgb 30.6 pg (27.0-31.0); Mean Corpuscular Volume 88.6 fL (80.0-94.0); Mean Platelet Volume 8.6 fL (7.4-10.4); Platelet Count 298 10^3/uL (130-400); Red Blood Cell Count 5.27 10^6/uL (4.70-6.10); Red Cell Dist. Width 12.4 % (11.5-14.5)
[2024-09-06] MEDS: NICODERM TRANSDERMAL 14 MG TRANSDERM (08:17)
[2024-09-06] MEDS: ASPIRIN 300 MG RECTAL (08:17)
[2024-09-06 08:57] LABS: Blood Urea Nitrogen 10 mg/dl (9-20); Carbon Dioxide 21 mmol/L (22-30); Chloride 109 mmol/L (98-107); Estimated Creatinine Clearance 123 ml/min; Glucose 110 mg/dl (70-99); Potassium 4.1 mmol/L (3.5-5.1); Sodium 139 mmol/L (135-145); eGFR > 60.00
--- NOTE | 2024-09-06 11:24 | W.PN.HOSP.TC ---
Today's Communication/Plan
-
Start antihypertensives (IV hydralazine 10mg TID, hold for SBP < 100); continue PT/OT/Speech
Assessment / Plan
Assessment / Plan
A/P:
# Acute CVA with severe neurologic impairment
Symptomatically with right hemiparesis, expressive aphasia, gaze abnormality
Differential strokes include cardioembolic disease (most likely), versus atheroembolic versus paradoxical versus HTN
CTA showed previous right frontal infarct and pontine lacunar infarcts; no ASCVD or LVO
CT perfusion scan shows significant sized infarct of left parieto-occipital region
MRI Brain:
1. LARGE REGION of ACUTE ISCHEMIC INFARCTION in the left middle cerebral artery territory involving the LEFT PARIETAL LOBE, POSTERIOR LEFT FRONTAL LOBE, and LEFT INSULAR CORTEX.
2. 1.0 cm subacute ischemic white matter infarct in the posterior right frontal lobe.
3. Moderate-sized chronic ischemic infarct in the anterior inferior right frontal lobe.
4. Chronic infarcts in the [place].
5. Chronic lacunar infarcts in both thalami.
6. Severe white matter leukoaraiosis in the frontal and parietal lobes.
7. Tiny chronic intraparenchymal microhemorrhages in a distribution most consistent with mild hypertensive microangiopathy.
8. Mild diffuse cerebral and cerebellar volume loss.
9. 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
TTE: negative bubble study, no valvular dysfunction
Cont rectal aspirin
LDL 95, A1c 5.6%
Started Lipitor 40 mg (LDL goal < 70)
Start antihypertensives; hydralizine 10mg TID with hold parameters
Continues to be NPO per SPL, IV maintenance fluids with D5WNSS
Continue to monitor NIHSS and neurocheck
Continue PT/OT
Likely will need Linq device OP
# Hypertension
BP elevated here, presence of lacunar infarcts on CT likely correlate with chronic hypertension
Not currently on any antihypertensive agents at home
48 hours of permissive HTN per stroke protocol; start antihypertensives today. IV for now since NPO.
Should be started on PO CCB + ARB/ACEi prior to d/c
# Tobacco use
Encourage absolute smoking cessation
Nicotine patches ordered if needed
Diet: NPO; D5W with NSS
DVT prophylaxis: SCDs, rectal aspirin
CODE STATUS: Full code
DW mother at bedside
Anticipated Discharge: 24 - 48 hours
Subjective/Interval History
-
Date of Service: September 06, 2024
Patient seen and examined at bedside. Patient's mother and friend are at bedside and note an interval improvement in the patient's neurologic status; state that he is speaking a word or two today.
Objective Data
-
Labs:
Laboratory Results
09/06/24
07:54
WBC 11.0 H
Hgb 16.1
Hct 46.7
Plt Count 298
Sodium 139
Potassium 4.1
Chloride 109 H
Carbon Dioxide 21 L
BUN 10
Creatinine 0.7
Glucose 110 H
Calcium 9.0
Vital Signs:
Vital Signs
Temp Pulse Resp BP Pulse Ox
98.3 F 91 17 165/132 92
09/06/24 07:00 09/06/24 07:00 09/06/24 07:00 09/06/24 07:00 09/06/24 08:30
I&O
09/05/24 09/06/24 09/07/24
06:59 06:59 06:59
Intake Total 1200 / 1200 1200 / 1200
Balance 1200 / 1200 1200 / 1200
Review of Systems
-
Unable to obtain full review of systems at this time due to: Acuity
Physical Exam
-
General: Slurred Speech and Other (expressive aphasia, but became tearful when talking to mother about prognosis)
Respiratory: Non Labored Respirations
Cardiac: Regular Rhythm and S1/S2
Skin: Warm and Dry
Neuro: Awake, Alert, Slurred Speech and Facial Droop
Psych: Calm (but tearful)
Data Reviewed
-
MRI: Image personally visualized and interpreted, Report Reviewed by me, Discussed with Patient and Discussed with Family
Labs: Labs Reviewed by me and Discussed with Family
--- NOTE | 2024-09-06 11:58 | CM ---
Chart reviewed and pillowcase sewer met with patient and spoke with patient's mother at bedside, [facility]. Patient has no insurance, plan will be for patient to be evaluated for disability. Plan will be to make referral to [facility]. PM&R evaluation.
Plan; Await PT/OT evaluations, needs PM&R consult. No insurance needs disability form completed.
--- NOTE | 2024-09-06 13:36 | W.PN.UPDATE ---
Update Note
Progress Note Update
I saw and evaluated the patient. I reviewed the resident�s note and agree with findings and plan as documented in the resident�s note.
A/P:
# Acute CVA with severe neurologic impairment
Symptomatically with right hemiparesis, expressive aphasia, gaze abnormality
Differential strokes include cardioembolic disease (most likely), versus atheroembolic versus paradoxical versus HTN
CTA showed previous right frontal infarct and pontine lacunar infarcts; no ASCVD or LVO
CT perfusion scan shows significant sized infarct of left parieto-occipital region
MRI brain confirmed:
1. LARGE REGION of ACUTE ISCHEMIC INFARCTION in the left middle cerebral artery territory involving the LEFT PARIETAL LOBE, POSTERIOR LEFT FRONTAL LOBE, and LEFT INSULAR CORTEX.
2. 1.0 cm subacute ischemic white matter infarct in the posterior right frontal lobe.
3. Moderate-sized chronic ischemic infarct in the anterior inferior right frontal lobe.
4. Chronic infarcts in the [place].
5. Chronic lacunar infarcts in both thalami.
6. Severe white matter leukoaraiosis in the frontal and parietal lobes.
7. Tiny chronic intraparenchymal microhemorrhages in a distribution most consistent with mild hypertensive microangiopathy.
8. Mild diffuse cerebral and cerebellar volume loss.
9. 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
TTE w/ microbubbles unrevealing:
Normal LV size and function with no regional wall motion abnormalities.
LVEF is 60-65% by visual estimation.
Moderate concentric LVH.
Normal right ventricular size and function.
No significant valvular disease.
No obvious shunting on agitated saline injection.
No prior study available for comparison.
Cont rectal aspirin
Cont daily SPL eval
Currently NPO with IV maintenance fluids D5WNSS
LDL 95, A1c 5.6%
Started Lipitor 40 mg (LDL goal < 70) when able to take PO
Continue to monitor NIHSS and neurocheck
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
Likely will need Linq device
# Hypertension
Not currently on any antihypertensive agents at home
Start IV hydralazine 10 mg TID while NPO, to change to PO when passed SPL eval
IV labetalol PRN
# Tobacco use
Encourage absolute smoking cessation
Cont Nicotine patches
Diet: NPO; D5W with NSS
DVT prophylaxis: SCDs, rectal aspirin
CODE STATUS: Full code
Extensive discussion with mother at bedside
total time 51 min
[2024-09-06] MEDS: LIPITOR 40 MG PO (17:41)
[2024-09-07] VITALS (9 sets, daily range): BP systolic 148–187; BP diastolic 82–120; O2SAT 98
[2024-09-07] MEDS: NSS (PRESERVATIVE FREE) 0.25 ML IV (02:27)
[2024-09-07] MEDS: ATIVAN 0.5 MG IV (02:27)
--- NOTE | 2024-09-07 02:33 | PTCARENOTE ---
pt very agitated, banging on side rails. yelling at nurse. Attempts made to calm patient without success. Ativan given per prn orders.
[2024-09-07] MEDS: TRANDATE 10 MG IV (03:49)
[2024-09-07] MEDS: D5/0.9% SODIUM CHLORIDE 1000 IV ×2 (03:49→14:56)
[2024-09-07 07:50] LABS: Hematocrit 46.3 % (39.0-52.0); Mean Corp Hgb Conc. 34.6 g/dL (33.0-37.0); Mean Corpuscular Hgb 30.5 pg (27.0-31.0); Mean Corpuscular Volume 88.4 fL (80.0-94.0); Mean Platelet Volume 10.2 fL (7.4-10.4); Platelet Count 253 10^3/uL (130-400); Red Blood Cell Count 5.24 10^6/uL (4.70-6.10); Red Cell Dist. Width 12.8 % (11.5-14.5); White Blood Cell Count 9.5 10^3/uL (4.8-10.8)
[2024-09-07] MEDS: APRESOLINE 10 MG IV ×3 (08:49→23:29)
[2024-09-07] MEDS: ASPIRIN 300 MG RECTAL (08:49)
[2024-09-07] MEDS: NICODERM TRANSDERMAL 14 MG TRANSDERM (08:50)
--- NOTE | 2024-09-07 09:00 | CON.MD ---
Documented by User: Adriana Yoon PA-C 09/07/24 18:05
Consultation - Medical
-
Referring Provider:�
Chief Complaint:�CVA
�
History of Present Illness:�Patient is a 59-year-old male with no significant PMH who presented to the ED on 09/06/2024 with right hemiplegia, facial droop, left-sided gaze preference and aphasia. A stroke alert was activated.
�History is obtained from patient's close friend who found him at home confused and with difficulty speaking and facial droop around 7 PM. He was not a candidate for tenecteplase due to unclear timeframe of onset of symptoms and not a candidate for
clot retrieval since that was not present.
MRI of the brain�09/05/2024 LARGE REGION of ACUTE ISCHEMIC INFARCTION in the left middle cerebral artery territory involving the LEFT PARIETAL LOBE, POSTERIOR LEFT FRONTAL LOBE, and LEFT INSULAR CORTEX.
CTA showed previous right frontal infarct and pontine lacunar infarcts; no ASCVD
CT perfusion scan shows significant sized infarct of left parieto-occipital region
Patient seen and evaluated by neurology who recommended permissive hypertension until 24 hours after admission with blood pressure over 220/120 then normotension. Aspirin 300 mg per rectum as he is not able to take by mouth medication. Would not
add clopidogrel to his therapy due to the large size stroke. Patient currently NPO. Eventually will add atorvastatin once able to take po medicines. If he continues not to tolerate p.o. will need to have PEG tube placed and eventual implant
color television console monitor to evaluate for arrhythmia
Past Medical History:�
Procedure History:�No prior surgeries.
Family History:�No family history of strokes or cardiac problems.
�
Social History:�
Functional Level Premorbidly:�Independent with all activities�
Functional Level Currently:�Transfer�min assist, attempted sidestepping but patient was unable to follow direction,
�
Tobacco: smokes�half a pack of cigarettes per day
Alcohol:�Denies�
Drug use:�Denies�
�
Lives with:�Alone
24-hour assistance available:�
Number of floors:�2
# steps to enter:�2
# steps to second floor:?
Potential First floor set up:�
Driving:�?
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
�
�
Allergies:�
Allergy/AdvReac Type Severity Reaction Status Date / Time
NKA - No Known Allergies Allergy Unknown Uncoded 09/03/24 20:36
�
Review of Systems:�
Constitutional: (x) Normal _
Eye: (x) Normal _
Ear/Nose/Throat: (x) Normal _
Respiratory: (x) Normal _
Cardiovascular: (x) abNormal _HTN
Gastrointestinal: (x) Normal _
Genitourinary: (x) Normal _
Musculoskeletal: (x) Normal _
Integumentary: (x) Normal _
Neurologic: (x) abNormal _cva, right hemiparesis, receptive and expressive aphasia
Psychiatric: (x) abNormal _labile,crying, frustration
Endocrine: (x) Normal _
Hematologic/Lymphatic: (x) Normal _
Allergic/Immunologic: (x) Normal _
�
Medications:�
Category Date Time Status
0.9% Sodium Chloride [Nss (Preservative Free)] Med 09/03/24 23:41 Active
0.25 ml IV Q8HPRN PRN
Aspirin Med 09/04/24 08:00 Active
300 mg RECTAL DAILY
Atorvastatin [Lipitor] Med 09/04/24 18:00 Active
40 mg PO QPM
Dextrose 5%/0.9%Sodchl 1000 ml [D5/0.9% Sodium Chloride Med 09/05/24 12:00 Active
] 1,000 ml
IV 100 mls/hr
Flush (0.9% Sodium Chloride) [Flush (Nss)] Med 09/03/24 23:00 Active
See Dose Instructions IV PER PROTOCOL
HydrALAZINE [Apresoline] Med 09/06/24 16:00 Active
10 mg IV Q8H
Labetalol HCl [Trandate] Med 09/03/24 23:39 Active
10 mg IV Q6HPRN PRN
Lorazepam [Ativan] Med 09/03/24 23:39 Active
0.5 mg IV Q8HPRN PRN
Nicotine [Nicoderm Transdermal] Med 09/04/24 14:00 Active
14 mg TRANSDERM DAILY
�
Vitals:�
Temp Pulse Resp BP Pulse Ox
99.1 F 71 16 167/108 96
09/07/24 07:56 09/07/24 07:56 09/07/24 07:56 09/07/24 07:56 09/07/24 07:56
Height 6 ft
Actual Weight 87.203 kg
Body Mass Index (BMI) 26.1
Was unable to fully examine patient due to aphasia patient's participation in getting very frustrated
�
Physical Exam:�
General Appearance/Observation: Well-developed, well-nourished individual in no apparent distress.�
Pain/Comfort Assessment: Aphasia
Mood/Affect: Labile, emotional, crying, very frustrated by body language
�
Integumentary/Operative Site:�
�� Pressure Ulcer Evaluation: absent over heels.� Dry skin
�
�� Other Type of Wound:
�
�
Eyes: Conjunctiva/Lids: normal���� Pupils: pupils equal round and reactive to light and Accommodation�
Ears/Nose/Throat: oral mucosa moist,� throat -not visualized.������������ Lips/Teeth/Gums: NT
Neck: No muscle spasm or tenderness�
Cardiovascular: Heart: regular, no murmur�
Pulses: dorsalis pedis 2+ bilaterally�
Respiratory: Respiratory Effort/Chest Expansion: normal������� Auscultation: Clear to auscultation bilaterally�
Gastrointestinal: abdomen not tender, no distension, normal abdominal bowel sounds
Genitourinary: Dixon�
Extremities:�Edema: None�Cyanosis: None�Trophic�changes: None
�
Neurology Exam:
Orientation: Unable to assess due to aphasia. Patient also labile and is crying. Able to mumble yes or no depending on the questions
Memory: Affected by aphasia
Repetition: Unable to assess
Comprehension: Needs repeating and cueing
Two step command: impaired
Naming: Affected by aphasia
Cranial Nerves:
�� CNII:�Pupillary light reflex: Intact����Visual Field: Unable to assess due to aphasia
�� CN III, IV, : Extraocular muscles: Intact�
�� CN V:�Facial Sensation�a�Forehead: ,�Maxilla: ,�Mandible: Unable to assess due to aphasia
�� CN VII:�Facial movement: Symmetric
�� CN VIII:�Hearing: Normal
�� CN IX/X:�Speech & swallow: Aphasia�Position of Uvula: Midline
�� CN XI:�Shoulder shrug: NT
�� CN XII:�Tongue protrusion: NT
Sensory:
�� Light touch: Unable to assess due to aphasia
��
Reflexes:
�� Biceps: 1+ bilaterally
�� Brachioradialis: 1+ bilaterally
�� Triceps: 1+ bilaterally
�� Patellar: 3+ bilaterally
�� Achilles: absent bilaterally
�� Babinski: Down going bilaterally
�� Clonus: None
�� Aakash: Negative bilaterally�
Cerebellar: Dysmetria/Ataxia: NT
Musculoskeletal:
Motor: (Manual muscle scale 0-5)�
Muscle SA EF WE EE FF FA HF KE DF EHL PF
Right� 1 1 1 1 1 1
Left 5 5 5 5 5 5
�
Tone: Normal in all extremities�
Range of Motion: Passively within normal limits in all extremities�
�
Lab Results:
Labs
WBC 9.5 10^3/uL (4.8-10.8) 09/07/24 07:06
RBC 5.24 10^6/uL (4.70-6.10) 09/07/24 07:06
Hgb 16.0 g/dL (13.0-18.0) 09/07/24 07:06
Hct 46.3 % (39.0-52.0) 09/07/24 07:06
MCV 88.4 fL (80.0-94.0) 09/07/24 07:06
MCH 30.5 pg (27.0-31.0) 09/07/24 07:06
MCHC 34.6 g/dL (33.0-37.0) 09/07/24 07:06
RDW 12.8 % (11.5-14.5) 09/07/24 07:06
Plt Count 253 10^3/uL (130-400) 09/07/24 07:06
MPV 10.2 fL (7.4-10.4) 09/07/24 07:06
Abs Immat Gran (auto) 0.1 10^3/uL (0-0.05) H 09/05/24 06:25
Absolute Neuts (auto) 7.9 10^3/uL (1.4-6.5) H 09/05/24:25
Absolute Lymphs (auto) 2.2 10^3/uL (1.2-3.4) 09/05/24 06:25
Absolute Monos (auto) 1.3 10^3/uL (0.1-0.6) H 09/05/24:25
Absolute Eos (auto) 0.5 10^3/uL (0-0.7) 09/05/24 06:25
Absolute Basos (auto) 0.1 10^3/uL (0-0.2) 09/05/24 06:25
Immature Gran % 0.4 % (0-0.5) 09/05/24:25
Neutrophils % 65.8 % (42.2-75.2) 09/05/24 06:25
Lymphocytes % 18.0 % (20.5-51.1) L 09/05/24:25
Monocytes % 11.0 % (1.7-9.3) H 09/05/24:25
Eosinophils % 4.2 % (0-6) 09/05/24:25
Basophils % 0.6 % (0-2) 06/01/25 06:25
Nucleated RBC % 0 % (-) 09/05/24 06:25
PT 13.1 Sec (11.4-14.6) 09/03/24 20:52
INR 0.96 09/03/24 20:52
APTT 30.9 Sec (23.4-35.0) 09/03/24 20:52
Sodium 139 mmol/L (135-145) 09/06/24 07:54
Potassium 4.1 mmol/L (3.5-5.1) 09/06/24 07:54
Chloride 109 mmol/L (98-107) H 09/06/24 07:54
Carbon Dioxide 21 mmol/L (22-30) L 09/06/24 07:54
BUN 10 mg/dl (9-20) 09/06/24 07:54
Creatinine 0.7 mg/dL (0.7-1.3) 09/06/24 07:54
Estimated Creat Clear 123 ml/min 09/06/24 07:54
eGFR > 60.00 09/06/24 07:54
Glucose 110 mg/dl (70-99) H 09/06/24 07:54
Hemoglobin A1c Cancelled 09/03/24 23:39
Calcium 9.0 mg/dl (8.4-10.2) 09/06/24 07:54
Total Bilirubin 1.3 mg/dl (0.2-1.3) 09/04/24 08:14
AST 30 U/L (17-59) 09/04/24 08:14
ALT 28 U/L (0-50) 09/04/24 08:14
Alkaline Phosphatase 101 U/L (38-126) 09/04/24 08:14
Total Protein 7.7 g/dl (6.3-8.2) 09/04/24 08:14
Albumin 4.7 g/dl (3.5-5.0) 09/04/24 08:14
Triglycerides Cancelled 09/03/24 23:39
Total Cholesterol Cancelled 09/03/24 23:39
LDL Cholesterol, Calc Cancelled 09/03/24 23:39
VLDL Cholesterol, Calc Cancelled 09/03/24 23:39
HDL Cholesterol Cancelled 09/03/24 23:39
POC Glucose 69 mg/dl (70-99) L 09/03/24 20:53
�
Diagnostic Results:�as per HPI�
MRI brain confirmed:
1. LARGE REGION of ACUTE ISCHEMIC INFARCTION in the left middle cerebral artery territory involving the LEFT PARIETAL LOBE, POSTERIOR LEFT FRONTAL LOBE, and LEFT INSULAR CORTEX.
2. 1.0 cm subacute ischemic white matter infarct in the posterior right frontal lobe.
3. Moderate-sized chronic ischemic infarct in the anterior inferior right frontal lobe.
4. Chronic infarcts in the [place].
5. Chronic lacunar infarcts in both thalami.
6. Severe white matter leukoaraiosis in the frontal and parietal lobes.
7. Tiny chronic intraparenchymal microhemorrhages in a distribution most consistent with mild hypertensive microangiopathy.
8. Mild diffuse cerebral and cerebellar volume loss.
9. 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
TTE w/ microbubbles unrevealing:
Normal LV size and function with no regional wall motion abnormalities.
LVEF is 60-65% by visual estimation.
Moderate concentric LVH.
Normal right ventricular size and function.
No significant valvular disease.
No obvious shunting on agitated saline injection.
No prior study available for comparison.
�
Assessment: 59-year-old male with right-sided hemiparesis, aphasia , left gaze preference, ADL and ambulatory dysfunction found to have large left acute ischemic infarct on MRI
�
Plan�
PM&R�PT/OT to increase independence with ADLs, improve balance, coordination, endurance, strength, mobility, community reintegration, decreased burden of care on others and family education.�
�
CVA: left middle cerebral artery, LEFT PARIETAL LOBE, POSTERIOR LEFT FRONTAL LOBE, and LEFT INSULAR CORTEX. Old right lacunar infarcts in both thalami and in the [place]..Per neuro: ASA 300 mg per rectum. No Plavix due to large size of stroke , statin,
and blood pressure control (SBP less than 180 and diastolic less than 100 to participate with therapy for ischemic stroke). Continue to monitor neurologic status.�
Right dominant hemiparesis: High risk for falls and sliding out of chair/bed. Safety reinforced.�
- Avoid using affected arm to help lift or pull patient as this will cause trauma to the shoulder.
Dysphagia: speech evaluation, oral care protocol, chlorhexidine rinse after meals and HS, aspiration precautions.� To undergo video swallow test. May need PEG tube.�
Dysarthria: speech evaluation�
Aphasia: Expressive and receptive. Speech evaluation�
HTN: Hydralazine 10mg TID IV q 8 hours , labetalol 10 mg IV every 6 as needed
HLD: Atorvastatin
Psych/anxiety: Psychology consult.� Lorazepam 0.5 mg IV Q8 as needed
Skin: monitor for pressure sores/rashes/lesions.�
Pain: not on any medications
Bowel: T/C bowel regimen -Colace and Senna, PRN bisacodyl.�
Bladder: Time void, PVRs, PRN straight cath.�
Tobacco Abuse: Smoking cessation counseling. Need to find out why smoking whether it is nicotine withdrawal, habit, or oral fixation.�NicoDerm transdermal 14 mg daily
GI Prophylaxis: Pantoprazole�
DVT Prophylaxis: SCDs and aspirin 300 mg rectal qd
Pulmonary: Incentive spirometry�
Safety: Continue to reinforce assistance with all transfers.�
Code Status:� Full code
Dispo�(date/plan/equipment needs): Home with family care.� Social history reviewed.�
�
Functional and Medical Goals:�Modified Independent with ADL�s, ambulation, transfers�
�
SUMMARY
Things that must be addressed in Hospital prior to discharge:�
��� Patient must be stable on oral pain medications.
��� Blood pressure must be less than 180 systolic and 100 diastolic on oral medications for 24 hours before being stable for transfer to acute rehab
��� Please comment on dvt chemoprophylaxis restrictions.
PEG tube placement or dietary recommendations by speech to be established after video swallow and patient is tolerating prior to discharge.
Cardiac evaluation. implanted color television console monitor will be needed to evaluate for arrhythmias
Right dominant hemiparesis: High risk for falls and sliding out of chair/bed. Safety reinforced.�
- Avoid using affected arm to help lift or pull patient as this will cause trauma to the shoulder. Recommending Multi podus boot-RLE.
�
Discharge Destination:�Acute inpatient rehabilitation once medically stable, and all testing and evaluations have been completed.
�
Thank you for allowing me to care for your patient. Please contact me with any questions or concerns.

Documented by User: Sai Arrieta MD 09/07/24 22:31
Consultation - Medical
-
Chief Complaint:�CVA
�
History of Present Illness:�Patient is a 59-year-old male with no significant PMH who presented to the ED on 09/06/2024 with right hemiplegia, facial droop, left-sided gaze preference and aphasia. A stroke alert was activated.
�History is obtained from patient's close friend who found him at home confused and with difficulty speaking and facial droop around 7 PM. He was not a candidate for tenecteplase due to unclear timeframe of onset of symptoms and not a candidate for
clot retrieval since that was not present.
MRI of the brain�09/05/2024 LARGE REGION of ACUTE ISCHEMIC INFARCTION in the left middle cerebral artery territory involving the LEFT PARIETAL LOBE, POSTERIOR LEFT FRONTAL LOBE, and LEFT INSULAR CORTEX.
CTA showed previous right frontal infarct and pontine lacunar infarcts; no ASCVD
CT perfusion scan shows significant sized infarct of left parieto-occipital region
Patient seen and evaluated by neurology who recommended permissive hypertension until 24 hours after admission with blood pressure over 220/120 then normotension. Aspirin 300 mg per rectum as he is not able to take by mouth medication. Would not
add clopidogrel to his therapy due to the large size stroke. Patient currently NPO. Eventually will add atorvastatin once able to take po medicines. If he continues not to tolerate p.o. will need to have PEG tube placed and eventual implant
color television console monitor to evaluate for arrhythmia
Past Medical History:�
Procedure History:�No prior surgeries.
Family History:�No family history of strokes or cardiac problems.
�
Social History:�
Functional Level Premorbidly:�Independent with all activities�
Functional Level Currently:�Transfer�min assist, attempted sidestepping but patient was unable to follow direction,
�
Tobacco: smokes�half a pack of cigarettes per day
Alcohol:�Denies�
Drug use:�Denies�
�
Lives with:�Alone
24-hour assistance available:�No
Number of floors:�1
# steps to enter:�2
Driving:�Yes
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
�
�
Allergies:�
Allergy/AdvReac Type Severity Reaction Status Date / Time
NKA - No Known Allergies Allergy Unknown Uncoded 09/03/24 20:36
�
Review of Systems:�
Constitutional: (x) Normal _
Eye: (x) Normal _
Ear/Nose/Throat: (x) Normal _
Respiratory: (x) Normal _
Cardiovascular: (x) abNormal _HTN
Gastrointestinal: (x) Normal _
Genitourinary: (x) Normal _
Musculoskeletal: (x) Normal _
Integumentary: (x) Normal _
Neurologic: (x) abNormal _cva, right hemiparesis, receptive and expressive aphasia
Psychiatric: (x) abNormal _labile,crying, frustration
Endocrine: (x) Normal _
Hematologic/Lymphatic: (x) Normal _
Allergic/Immunologic: (x) Normal _
�
Medications:�
Category Date Time Status
0.9% Sodium Chloride [Nss (Preservative Free)] Med 09/03/24 23:41 Active
0.25 ml IV Q8HPRN PRN
Aspirin Med 09/04/24 08:00 Active
300 mg RECTAL DAILY
Atorvastatin [Lipitor] Med 09/04/24 18:00 Active
40 mg PO QPM
Dextrose 5%/0.9%Sodchl 1000 ml [D5/0.9% Sodium Chloride Med 09/05/24 12:00 Active
] 1,000 ml
IV 100 mls/hr
Flush (0.9% Sodium Chloride) [Flush (Nss)] Med 09/03/24 23:00 Active
See Dose Instructions IV PER PROTOCOL
HydrALAZINE [Apresoline] Med 09/06/24 16:00 Active
10 mg IV Q8H
Labetalol HCl [Trandate] Med 09/03/24 23:39 Active
10 mg IV Q6HPRN PRN
Lorazepam [Ativan] Med 09/03/24 23:39 Active
0.5 mg IV Q8HPRN PRN
Nicotine [Nicoderm Transdermal] Med 09/04/24 14:00 Active
14 mg TRANSDERM DAILY
�
Vitals:�
Temp Pulse Resp BP Pulse Ox
99.1 F 71 16 167/108 96
09/07/24 07:56 09/07/24 07:56 09/07/24 07:56 09/07/24 07:56 09/07/24 07:56
Height 6 ft
Actual Weight 87.203 kg
Body Mass Index (BMI) 26.1
Patient was unable to be fully examined due to aphasia and limited participation because of frustration
�
Physical Exam:�
General Appearance/Observation: Well-developed, well-nourished male in no apparent distress.�
Pain/Comfort Assessment: Does not appear to be in pain, denies
Mood/Affect: Labile, emotional, crying, very frustrated by body language
�
Integumentary/Operative Site:�No open lesions noted during course of exam
�� Pressure Ulcer Evaluation: absent over heels.� Dry skin
�
�
Eyes: Conjunctiva/Lids: normal���� Pupils: pupils equal round and reactive to light and Accommodation�
Ears/Nose/Throat: oral mucosa moist,� drooling.������������ Lips/Gums: normal
Cardiovascular: Heart: regular, no murmur�
Pulses: dorsalis pedis 2+ bilaterally�
Respiratory: Respiratory Effort/Chest Expansion: normal������� Auscultation: Clear to auscultation bilaterally�
Gastrointestinal: abdomen not tender, no distension, normal abdominal bowel sounds
Genitourinary: Dixon�with clear yellow urine
Extremities:�Edema: None�Cyanosis: None�Trophic�changes: None
�
Neurology Exam:
Orientation: Unable to assess due to aphasia. Patient also labile and is crying. Able to mumble yes or no depending on the questions
Memory: Affected by aphasia
Repetition: impaired
Comprehension: Seems to understand pretty well
Two step command: intact for simple commands
Naming: impaired
Cranial Nerves:
�� CNII:�Pupillary light reflex: Intact����Visual Field: Right homonymous hemianopsia
�� CN III, IV, : Extraocular muscles: Intact�
�� CN V:�Facial Sensation: intact
�� CN VII:�Facial movement: Impaired on right
�� CN VIII:�Hearing: Normal
�� CN IX/X:�Speech & swallow: Aphasia, drooling, dysarthric�Position of Uvula: unable to assess
�� CN XI:�Shoulder shrug: decreased on right
�� CN XII:�Tongue protrusion: deviates to the left
Sensory:
�� Light touch: decreased on right vs left in extremities
��
Reflexes:
�� Biceps: 2+ bilaterally
�� Brachioradialis: 2+ bilaterally
�� Triceps: 2+ bilaterally
�� Patellar: 3+ right, 2+ left
�� Achilles: absent bilaterally
�� Babinski: Down going bilaterally
�� Clonus: None
�� Aakash: Negative on left, positive on right�
Cerebellar: Dysmetria/Ataxia: not on left
Musculoskeletal: Motor: (Manual muscle scale 0-5)�
Muscle SA EF WE EE FF FA HF KE DF EHL PF
Right� 1 1+ 0 1 0 3 3+ 1 1 1
Left 5 5 5 5 5 5 5 5 5 5
�
Tone: Normal in all extremities�
Range of Motion: Passively within normal limits in all extremities�
�
Lab Results:
Labs
WBC 9.5 10^3/uL (4.8-10.8) 09/07/24 07:06
RBC 5.24 10^6/uL (4.70-6.10) 09/07/24 07:06
Hgb 16.0 g/dL (13.0-18.0) 09/07/24 07:06
Hct 46.3 % (39.0-52.0) 09/07/24 07:06
MCV 88.4 fL (80.0-94.0) 09/07/24 07:06
MCH 30.5 pg (27.0-31.0) 09/07/24 07:06
MCHC 34.6 g/dL (33.0-37.0) 09/07/24 07:06
RDW 12.8 % (11.5-14.5) 09/07/24 07:06
Plt Count 253 10^3/uL (130-400) 09/07/24 07:06
MPV 10.2 fL (7.4-10.4) 09/07/24 07:06
Abs Immat Gran (auto) 0.1 10^3/uL (0-0.05) H 09/05/24 06:25
Absolute Neuts (auto) 7.9 10^3/uL (1.4-6.5) H 09/05/24 06:25
Absolute Lymphs (auto) 2.2 10^3/uL (1.2-3.4) 09/05/24 06:25
Absolute Monos (auto) 1.3 10^3/uL (0.1-0.6) H 09/05/24 06:25
Absolute Eos (auto) 0.5 10^3/uL (0-0.7) 09/05/24 06:25
Absolute Basos (auto) 0.1 10^3/uL (0-0.2) 09/05/24 06:25
Immature Gran % 0.4 % (0-0.5) 09/05/24 06:25
Neutrophils % 65.8 % (42.2-75.2) 09/05/24 06:25
Lymphocytes % 18.0 % (20.5-51.1) L 09/05/24 06:25
Monocytes % 11.0 % (1.7-9.3) H 09/05/24:25
Eosinophils % 4.2 % (0-6) 09/05/24:25
Basophils % 0.6 % (0-2) 09/05/24 06:25
Nucleated RBC % 0 % (-) 09/05/24 06:25
PT 13.1 Sec (11.4-14.6) 09/03/24 20:52
INR 0.96 09/03/24 20:52
APTT 30.9 Sec (23.4-35.0) 09/03/24 20:52
Sodium 139 mmol/L (135-145) 09/06/24 07:54
Potassium 4.1 mmol/L (3.5-5.1) 09/06/24 07:54
Chloride 109 mmol/L (98-107) H 09/06/24 07:54
Carbon Dioxide 21 mmol/L (22-30) L 09/06/24 07:54
BUN 10 mg/dl (9-20) 09/06/24 07:54
Creatinine 0.7 mg/dL (0.7-1.3) 09/06/24 07:54
Estimated Creat Clear 123 ml/min 09/06/24 07:54
eGFR > 60.00 09/06/24 07:54
Glucose 110 mg/dl (70-99) H 09/06/24 07:54
Hemoglobin A1c Cancelled 09/03/24 23:39
Calcium 9.0 mg/dl (8.4-10.2) 09/06/24 07:54
Total Bilirubin 1.3 mg/dl (0.2-1.3) 09/04/24 08:14
AST 30 U/L (17-59) 09/04/24 08:14
ALT 28 U/L (0-50) 09/04/24 08:14
Alkaline Phosphatase 101 U/L (38-126) 09/04/24 08:14
Total Protein 7.7 g/dl (6.3-8.2) 09/04/24 08:14
Albumin 4.7 g/dl (3.5-5.0) 09/04/24 08:14
Triglycerides Cancelled 09/03/24 23:39
Total Cholesterol Cancelled 09/03/24 23:39
LDL Cholesterol, Calc Cancelled 09/03/24 23:39
VLDL Cholesterol, Calc Cancelled 09/03/24 23:39
HDL Cholesterol Cancelled 09/03/24 23:39
POC Glucose 69 mg/dl (70-99) L 09/03/24 20:53
�
Diagnostic Results:�as per HPI�
MRI brain confirmed:
1. LARGE REGION of ACUTE ISCHEMIC INFARCTION in the left middle cerebral artery territory involving the LEFT PARIETAL LOBE, POSTERIOR LEFT FRONTAL LOBE, and LEFT INSULAR CORTEX.
2. 1.0 cm subacute ischemic white matter infarct in the posterior right frontal lobe.
3. Moderate-sized chronic ischemic infarct in the anterior inferior right frontal lobe.
4. Chronic infarcts in the [place].
5. Chronic lacunar infarcts in both thalami.
6. Severe white matter leukoaraiosis in the frontal and parietal lobes.
7. Tiny chronic intraparenchymal microhemorrhages in a distribution most consistent with mild hypertensive microangiopathy.
8. Mild diffuse cerebral and cerebellar volume loss.
9. 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
TTE w/ microbubbles unrevealing:
Normal LV size and function with no regional wall motion abnormalities.
LVEF is 60-65% by visual estimation.
Moderate concentric LVH.
Normal right ventricular size and function.
No significant valvular disease.
No obvious shunting on agitated saline injection.
No prior study available for comparison.
�
Assessment: 59-year-old M with no PMH with right-dominant hemiparesis, aphasia, left gaze preference, dysphagia, ADL and ambulatory dysfunctionfrom a large left acute ischemic infarct.
�
Plan�
PM&R�PT/OT to increase independence with ADLs, improve balance, coordination, endurance, strength, mobility, community reintegration, decreased burden of care on others and family education.�
�
CVA: left middle cerebral artery, LEFT PARIETAL LOBE, POSTERIOR LEFT FRONTAL LOBE, and LEFT INSULAR CORTEX. Old right lacunar infarcts in both thalami and in the [place]..Per neuro: ASA 300 mg per rectum. No Plavix due to large size of stroke , statin,
and blood pressure control (SBP less than 180 and diastolic less than 100 to participate with therapy for ischemic stroke). Continue to monitor neurologic status.�
Right dominant hemiparesis: High risk for falls and sliding out of chair/bed. Safety reinforced.�
- Avoid using affected arm to help lift or pull patient as this will cause trauma to the shoulder.
Dysphagia: speech evaluation, oral care protocol, aspiration precautions.� Had video swallow test 09/07. Puree with thin liquids. Change meds to oral.
Dysarthria: speech evaluation�
Aphasia: Expressive more then receptive. Speech
Right homonymous hemianopsia: discussed with patient and family, work on approaching from the right.
�
HTN: Hydralazine 10mg TID IV q 8 hours , labetalol 10 mg IV every 6 as needed
HLD: Atorvastatin
Psych/anxiety: Psychology consult.� Lorazepam 0.5 mg IV Q8 as needed
Skin: monitor for pressure sores/rashes/lesions.�
Pain: not on any medications
Bowel: Colace and Senna. PRN bisacodyl oral or suppository
Bladder: Currently with dixon, consider void trial with time void and checking PVR.
Tobacco Abuse: Smoking cessation counseling. Need to find out why smoking whether it is nicotine withdrawal, habit, or oral fixation.�NicoDerm transdermal 14 mg daily
DVT Prophylaxis: SCDs, suggest heparin DVT prophylaxis
Pulmonary: Incentive spirometry�
Safety: Continue to reinforce assistance with all transfers.�
Code Status:� Full code
Dispo�(date/plan/equipment needs): Home with family care.� Social history reviewed.�
Functional and Medical Goals:�Modified Independent with ADL�s, ambulation, transfers�
Discharge Destination:�Acute inpatient rehabilitation once medically stable, and all testing and evaluations have been completed.
�
SUMMARY
Things that must be addressed in Hospital prior to discharge:�
��� Blood pressure must be less than 180 systolic and 100 diastolic on oral medications for 24 hours before being stable for transfer to acute rehab
��� Please comment on dvt chemoprophylaxis restrictions. Suggest heparin with right sided weakness.
Monitor for calorie intake and hydration.
Cardiac evaluation. implanted color television console monitor will be needed to evaluate for arrhythmias
Right dominant hemiparesis/right neglect/right homonymous hemianopsia: High risk for falls and sliding out of chair/bed. Safety reinforced.�
- Avoid using affected arm to help lift or pull patient as this will cause trauma to the shoulder. Recommending Multi podus boot-RLE.
Dysphagia: speech evaluation, oral care protocol, aspiration precautions.� Had video swallow test 09/07. Puree with thin liquids. Change meds to oral.
Bowel: Colace and Senna. PRN bisacodyl oral or suppository
Bladder: Currently with dixon, consider void trial with time void and checking PVR.
�
Discharge Destination:�Acute inpatient rehabilitation once medically stable, and all testing and evaluations have been completed.
�
Thank you for allowing me to care for your patient. Please contact me with any questions or concerns.
Consultation
-
Date/Time Consultation Performed: 09/07/2024
Requesting Provider: Dr. Halle Stiles
Performing Provider: Dr. Sai Arrieta
Reason for Consultation: Stroke
[2024-09-07 10:37] LABS: Blood Urea Nitrogen 11 mg/dl (9-20); Calcium 8.9 mg/dl (8.4-10.2); Carbon Dioxide 21 mmol/L (22-30); Chloride 111 mmol/L (98-107); Estimated Creatinine Clearance 123 ml/min; Glucose 110 mg/dl (70-99); Sodium 140 mmol/L (135-145); eGFR > 60.00
--- NOTE | 2024-09-07 12:54 | PTOTSP ---
Videofluoroscopic swallow study
Moderate oral stage difficulties and mild pharyngeal dysphagia secondary to LEFT MCA CVA and lack of upper dentures. No aspiration occurred.
Recommend:
1. IDDSI Level 4 Puree, Thin Liquids
2. Medications: crushed in puree if medically cleared
3. Strategies: upright to 90 degrees, FULL supervision and assistance, small single sips/bites, place utensil on LEFT side of oral cavity, check for pocketing, oral care after meals
4. Oral care 3x daily + after meals
5. Dysphagia therapy at the acute care level (for instruction in use of compensations, to assess advanced solids when upper denture present, to try and increase awareness of right side of oral cavity for oral clearance).
6. Continued speech/language/cognitive tx at the acute care level. Therapy warranted after D/C
--- NOTE | 2024-09-07 15:49 | CM ---
Patient seen at bedside with herb on . Patient family members here that have not seen patient for several years due to issues within the family. Patient mother requests that contacts be herself and patient brother, Jae [phone].
CM will continue to follow for discharge planning needs.
Plan; Octaviano; Pending review by PM&R, continue to work on MA application
--- NOTE | 2024-09-07 16:59 | W.PN.HOSP.TC ---
Addendum entered and electronically signed by Micaela Thomas MD 09/07/24 19:15:
I saw and evaluated the patient independently. I reviewed the resident�s note and agree with findings and plan as documented by Dr. Valadez.
GENERAL: well developed, well nourished, male --very tearful, crying, expressive aphasia
HEENT: NC/AT
HEART: regular rate and rhythm, +S1, +S2
LUNGS : clear to auscultation bilaterally
ABDOM: soft, nontender, nondistended, + bowel sounds
EXT: no cyanosis, clubbing, or edema
NEUROLOGIC: expressive aphasia, right hemiparesis
Acute ischemic CVA with severe neurologic impairment--Symptomatically with right hemiparesis, expressive aphasia, gaze abnormality--CTA with previous infarct, CT perfusion and MRI with large left ischemic stroke--apprec neurology, echo with bubble
study neg--apprec PM&R--for acute rehab when medically stable--control BP--PT/OT--speech with IDD4/thins--LDL 95, cont statin--Continue to monitor NIHSS and neurocheck--Likely will need Linq device OP
essential Hypertension--BP elevated--s/p 24 hours of permissive HTN--start standing labetalol with holding parameters--Should be started on PO CCB + ARB/ACEi prior to d/c
Tobacco use--must quit--Nicotine patches ordered if needed
DVT proph-- SCDs
CODE STATUS-- Full code
Original Note:
Today's Communication/Plan
-
.
Assessment / Plan
Assessment / Plan
A/P:
# Acute CVA with severe neurologic impairment
Symptomatically with right hemiparesis, expressive aphasia, gaze abnormality
Differential strokes include cardioembolic disease (most likely), versus atheroembolic versus paradoxical versus HTN
CTA showed previous right frontal infarct and pontine lacunar infarcts; no ASCVD or LVO
CT perfusion scan shows significant sized infarct of left parieto-occipital region
MRI Brain:
1. LARGE REGION of ACUTE ISCHEMIC INFARCTION in the left middle cerebral artery territory involving the LEFT PARIETAL LOBE, POSTERIOR LEFT FRONTAL LOBE, and LEFT INSULAR CORTEX.
2. 1.0 cm subacute ischemic white matter infarct in the posterior right frontal lobe.
3. Moderate-sized chronic ischemic infarct in the anterior inferior right frontal lobe.
4. Chronic infarcts in the [place].
5. Chronic lacunar infarcts in both thalami.
6. Severe white matter leukoaraiosis in the frontal and parietal lobes.
7. Tiny chronic intraparenchymal microhemorrhages in a distribution most consistent with mild hypertensive microangiopathy.
8. Mild diffuse cerebral and cerebellar volume loss.
9. 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
TTE 09/07: negative bubble study, no valvular dysfunction
Cont rectal aspirin
LDL 95, A1c 5.6%
Started Lipitor 40 mg (LDL goal < 70)
Standing hydralazine started yesterday, blood pressure still elevated
- Add standing order of IV labetalol with holding parameters
IDDSI 4 per speech, IV maintenance fluids with D5WNSS
Continue to monitor NIHSS and neurocheck
Continue PT/OT; recommended acute rehab, awaiting physiatry consult
Likely will need Linq device OP
# Hypertension
BP elevated here, presence of lacunar infarcts on CT likely correlate with chronic hypertension
Not currently on any antihypertensive agents at home
48 hours of permissive HTN per stroke protocol; antihypertensive started yesterday, labetalol added today with holding parameters
Should be started on PO CCB + ARB/ACEi prior to d/c
# Tobacco use
Encourage absolute smoking cessation
Nicotine patches ordered if needed
Diet: NPO; D5W with NSS
DVT prophylaxis: SCDs, rectal aspirin
CODE STATUS: Full code
DW mother at bedside
Anticipated Discharge: 24 - 48 hours
Subjective/Interval History
-
Date of Service: September 07, 2024
Patient seen and examined, resting comfortably bed. History is limited due to expressive aphasia.
Objective Data
-
Labs:
Laboratory Results
09/07/24 09/07/24 09/07/24
07:05 07:06 09:33
WBC 9.5
Hgb 16.0
Hct 46.3
Plt Count 253
Sodium Cancelled 140
Potassium Cancelled 4.0
Chloride Cancelled 111 H
Carbon Dioxide Cancelled 21 L
BUN Cancelled 11
Creatinine Cancelled 0.7
Glucose Cancelled 110 H
Calcium Cancelled 8.9
Vital Signs:
Vital Signs
Temp Pulse Resp BP Pulse Ox
99.0 F 77 18 174/106 93
09/07/24 15:30 09/07/24 15:30 09/07/24 15:30 09/07/24 15:30 09/07/24 15:30
I&O
09/06/24 09/07/24 09/08/24
06:59 06:59 06:59
Intake Total 1200 / 1200
Output Total 1800 / 1800
Balance -600 / -600
Review of Systems
-
Unable to obtain full review of systems at this time due to: Other (Expressive aphasia)
Physical Exam
-
General: Slurred Speech
HEENT: Atraumatic and Other (Right-sided facial droop, drooling)
Respiratory: Clear to Auscultation; Negative Wheezes, Rales or Rhonchi
Cardiac: Regular Rhythm and S1/S2
GI: Soft and Nontender
Musculoskeletal: No Clubbing, No Cyanosis and No Edema
Skin: Warm and Dry
Neuro: Awake, Alert, Facial Droop and Other (Right-sided flaccid paresis)
Psych: Calm
Data Reviewed
-
Labs: Labs Reviewed by me
[2024-09-07] MEDS: TRANDATE 5 MG IV ×2 (17:09→22:31)
[2024-09-07] MEDS: LIPITOR 40 MG PO (17:10)
[2024-09-08] VITALS (9 sets, daily range): BP systolic 136–198; BP diastolic 70–115; PULSE 78; O2SAT 93
[2024-09-08] MEDS: TRANDATE 5 MG IV ×2 (04:26→10:31)
[2024-09-08 07:21] LABS: Hematocrit 47.6 % (39.0-52.0); Hemoglobin 16.4 g/dL (13.0-18.0); Mean Corp Hgb Conc. 34.5 g/dL (33.0-37.0); Mean Platelet Volume 8.8 fL (7.4-10.4); Platelet Count 257 10^3/uL (130-400); Red Blood Cell Count 5.29 10^6/uL (4.70-6.10); Red Cell Dist. Width 12.7 % (11.5-14.5); White Blood Cell Count 10.8 10^3/uL (4.8-10.8)
[2024-09-08 08:00] LABS: Blood Urea Nitrogen 12 mg/dl (9-20); Calcium 9.1 mg/dl (8.4-10.2); Carbon Dioxide 21 mmol/L (22-30); Chloride 110 mmol/L (98-107); Estimated Creatinine Clearance 123 ml/min; Glucose 100 mg/dl (70-99); Potassium 4.1 mmol/L (3.5-5.1); Sodium 140 mmol/L (135-145); eGFR > 60.00
[2024-09-08] MEDS: APRESOLINE 10 MG IV ×2 (08:00→15:47)
[2024-09-08] MEDS: ASPIRIN 300 MG RECTAL (08:01)
[2024-09-08] MEDS: NICODERM TRANSDERMAL 14 MG TRANSDERM (08:01)
--- NOTE | 2024-09-08 09:56 | W.PN.HOSP.TC ---
Addendum entered and electronically signed by Micaela Thomas MD 09/08/24 17:13:
I saw and evaluated the patient independently. I reviewed the resident�s note and agree with findings and plan as documented by Dr. Valadez.
GENERAL: well developed, well nourished, male --very tearful, crying, expressive aphasia
HEENT: NC/AT
HEART: regular rate and rhythm, +S1, +S2
LUNGS : clear to auscultation bilaterally
ABDOM: soft, nontender, nondistended, + bowel sounds
EXT: no cyanosis, clubbing, or edema
NEUROLOGIC: expressive aphasia, right hemiparesis
Acute ischemic CVA with severe neurologic impairment--Symptomatically with right hemiparesis, expressive aphasia, gaze abnormality--CTA with previous infarct, CT perfusion and MRI with large left ischemic stroke--apprec neurology, echo with bubble
study neg--apprec PM&R--for acute rehab when medically stable--control BP, changing IV meds to oral--PT/OT--speech with IDD4/thins--LDL 95, cont statin--Continue to monitor NIHSS and neurocheck--Likely will need Linq device and MARIA ESTHER per neuro, apprec
input
essential Hypertension--BP elevated--s/p 24 hours of permissive HTN--start standing labetalol with holding parameters--Should be started on PO CCB + ARB/ACEi prior to d/c
Tobacco use--must quit--Nicotine patches ordered if needed
DVT proph-- SCDs
CODE STATUS-- Full code
Original Note:
Today's Communication/Plan
-
Increase Labetalol dose. Cardiology consult for MARIA ESTHER and Loop Recorder/LINQ. Continue PT/OT.
Assessment / Plan
Assessment / Plan
A/P:
# Acute CVA with severe neurologic impairment
Symptomatically with right hemiparesis, expressive aphasia, gaze abnormality
Differential strokes include cardioembolic disease (most likely), versus atheroembolic versus paradoxical versus HTN
CTA showed previous right frontal infarct and pontine lacunar infarcts; no ASCVD or LVO
CT perfusion scan shows significant sized infarct of left parieto-occipital region
MRI Brain:
1. LARGE REGION of ACUTE ISCHEMIC INFARCTION in the left middle cerebral artery territory involving the LEFT PARIETAL LOBE, POSTERIOR LEFT FRONTAL LOBE, and LEFT INSULAR CORTEX.
2. 1.0 cm subacute ischemic white matter infarct in the posterior right frontal lobe.
3. Moderate-sized chronic ischemic infarct in the anterior inferior right frontal lobe.
4. Chronic infarcts in the [place].
5. Chronic lacunar infarcts in both thalami.
6. Severe white matter leukoaraiosis in the frontal and parietal lobes.
7. Tiny chronic intraparenchymal microhemorrhages in a distribution most consistent with mild hypertensive microangiopathy.
8. Mild diffuse cerebral and cerebellar volume loss.
9. 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
TTE 09/07: negative bubble study, no valvular dysfunction
Cont rectal aspirin
LDL 95, A1c 5.6%
Started Lipitor 40 mg (LDL goal < 70)
Standing hydralazine/labetalol started yesterday, blood pressure still elevated
- Increased dosage of Labetalol today, continue to monitor and PO transition prior to transfer
IDDSI 4 per speech; patient tolerating diet, can start oral meds (crushed in pur�e)
Continue to monitor NIHSS and neurocheck
Continue PT/OT; recommended acute rehab, awaiting physiatry consult
Likely will need Linq device OP
Cardiology consult for MARIA ESTHER and evaluation for LINQ
# Hypertension
BP elevated here, presence of lacunar infarcts on CT likely correlate with chronic hypertension
Not currently on any antihypertensive agents at home
48 hours of permissive HTN per stroke protocol completed; maintain BP goal SBP <130
Should be started on PO CCB + ARB/ACEi prior to d/c
# Tobacco use
Encourage absolute smoking cessation (1/2PPD INGOT WEIGHER)
Nicotine patches ordered if needed
Diet: IDDSM4; oral meds crushed
DVT prophylaxis: SCDs, rectal aspirin
CODE STATUS: Full code
DW mother at bedside
Anticipated Discharge: > 48 hours
Subjective/Interval History
-
Date of Service: September 08, 2024
Patient seen and examined while resting in bed. History is limited secondary to expressive aphasia. Returned later when family was at bedside, had a conversation about hospital course and plan for rehab. Also joined Dr. Torres(neuro) for a discussion
regarding the patient's MRI and prognosis. Patient exhibits right-sided facial droop, expressive aphasia, right-sided hemiparesis. Pt able to ambulate along wall with assistance this AM.
Objective Data
-
Labs:
Laboratory Results
09/08/24
07:04
WBC 10.8
Hgb 16.4
Hct 47.6
Plt Count 257
Sodium 140
Potassium 4.1
Chloride 110 H
Carbon Dioxide 21 L
BUN 12
Creatinine 0.7
Glucose 100 H
Calcium 9.1
Vital Signs:
Vital Signs
Temp Pulse Resp BP Pulse Ox
97.8 F 72 18 198/115 96
09/08/24 07:19 09/08/24 08:00 09/08/24 07:19 09/08/24 08:00 09/08/24 08:20
I&O
09/07/24 09/08/24 09/09/24
06:59 06:59 06:59
Intake Total 1200 / 1200 980 / 980
Output Total 1800 / 1800 1500 / 1500
Balance -600 / -600 -520 / -520
Review of Systems
-
Unable to obtain full review of systems at this time due to: Patient Non-verbal (Expressive aphasia)
Physical Exam
-
General: Comfortable
HEENT: Normocephalic, Atraumatic and Moist Mucous Membranes
Respiratory: Clear to Auscultation; Negative Wheezes, Rales or Rhonchi
Cardiac: Regular Rhythm and S1/S2
GI: Soft and Nontender
Musculoskeletal: No Clubbing, No Cyanosis and No Edema
Skin: Warm and Dry
Neuro: Awake, Facial Droop (Right) and Other (Expressive aphasia, right-sided hemiparesis)
Psych: Calm and Other (Intermittently tearful)
Data Reviewed
-
MRI: Discussed with Patient and Discussed with Family
Labs: Labs Reviewed by me, Discussed with Patient and Discussed with Family
--- NOTE | 2024-09-08 13:42 | W.PN.NEURO.1 ---
Today's Communication / Plan
-
imgs reviewed with patient, family and resident Dr Valadez
cardiology consult for embolic workup
call w/ ?
Neuro Assessment/Plan
Assessment
I reviewed the CTA, perfusion, and MRI imaging with the patient and multiple family members. CTA showing left MCA no LVO, there is occlusion on M3 which is medium vessel, not typically accessible due to procedure risk. Showed them the perfusion with
small core infarct and large penumbra. He was not a TNK candidate due to duration which is the textbook correct answer. While I may have considered TNK off label based on the perfusion map, it would have been unlikely to be effective because
suspected embolic etiology, the older well organized clot is less responsive to being dissolved. Showed them the MRI with DWI showing that the clot broke up into pieces and he ended up infarcting patchy areas of that territory which is a much less
bad outcome than completing the entire stroke; more hope for a good but probably not complete recovery. Additional small subacute infarct right alfred. T1 imaging pointing out numerous chronic infarcts right [place], bilateral thalamus, basal ganglia,
cortical right frontal; which were clinically silent. With this pattern, strong suspicion for embolic, advising cardiology consult for MARIA ESTHER, afib screening with loop recorder or until source is found.
aspirin/Lipitor for now
Subjective/Objective
Subjective Data
Date of Service: September 08, 2024
this morning ambulated with assistance
some residual right visual field loss
Objective Data
Vital Signs
Temp Pulse Resp BP Pulse Ox
36.6 C 78 18 173/109 95
09/08/24 11:24 09/08/24 11:24 09/08/24 11:24 09/08/24 11:24 09/08/24 11:24
Lab Results
09/08/24 07:04
09/08/24 07:04
PT 13.1 Sec (11.4-14.6) 09/03/24 20:52
INR 0.96 09/03/24 20:52
APTT 30.9 Sec (23.4-35.0) 09/03/24 20:52
Sodium 140 mmol/L (135-145) 09/08/24 07:04
Potassium 4.1 mmol/L (3.5-5.1) 09/08/24 07:04
BUN 12 mg/dl (9-20) 09/08/24 07:04
Glucose 100 mg/dl (70-99) H 09/08/24 07:04
Calcium 9.1 mg/dl (8.4-10.2) 09/08/24 07:04
LDL Cholesterol, Calc Cancelled 09/03/24 23:39
Patient Allergies
No Known Allergies Allergy (Unverified 09/07/24 16:07)
--- NOTE | 2024-09-08 16:39 | CM ---
Patient seen at bedside with mother, and physicians. Octaviano is awaiting clarification regarding MA pending status. CM provided information on form to [facility] today. CM will continue to follow for discharge planning needs.
Plan;Octaviano pending MA status.
--- NOTE | 2024-09-08 16:42 | CON.CAR ---
Addendum entered and electronically signed by Tommy Emanuel MD 09/08/24 17:46:
Patient seen and examined in collaboration with APPRENTICE/LINEMAN; agree with below.
- 59-year-old male with uncontrolled hypertension and chronic cigarette use admitted with significant multifocal CVA; Cardiology consulted to rule out cardioembolic source.
- The patient has expressive aphasia and right sided paralysis; unable to communicate.
- The patient's mother is at bedside.
- It was explained that the patient would be at increased risk for MARIA ESTHER complications which could lead to intubation; the patient's mother has expressed that neither she nor the patient would want that.
- Ultimately, the patient's mother declined the patient undergoing a MARIA ESTHER, but she is agreeable to ILR insertion tomorrow (to exclude PAF), which will be arranged.
- The patient's most likely cause of multifocal CVA is uncontrolled hypertension and smoking as the patient had a peak blood pressure of 235/129 during this admission.
Original Note:
Consultation
Consultation Request
Date/Time Consultation Requested: 09/08/24 1635
Date/Time Consultation Performed: 09/08/24 1640
Requesting Provider: Dr. Valadez
Performing Provider: Devika LAM for Dr. Emanuel
Reason for Consultation: Stroke, eval for cardiac cause
Medical History
-
Chief Complaint: Stroke symptoms
History of Present Illness:
59 y/o male with HTN (no longer on medications) and smoker who is here for stroke symptoms including right-sided paralysis, facial droop, and expressive aphasia. MRI abnormal with strokes as detailed below. We are consulted to evaluate for cardiac
cause. His mom is at bedside.
Past Medical History
Past Medical History: HTN
Social History
Tobacco: Smoker
Family History
Family History: Unable to Obtain (expressive aphasia)
Allergies / Home Medications
Allergy/AdvReac Type Severity Reaction Status Date / Time
No Known Allergies Allergy Unverified 09/07/24 16:07
Review of Systems
-
Unable to obtain full review of systems at this time due to: Other (expressive aphasia)
History Source: Other (chart)
Neurological: Other (as described in HPI)
Physical Exam
Vital Signs
Temp Pulse Resp BP Pulse Ox
98.5 F 77 18 158/97 96
09/08/24 15:50 09/08/24 15:50 09/08/24 15:50 09/08/24 15:50 09/08/24 15:50
Lab Results
09/08/24 07:04
09/08/24 07:04
Physical Exam
General: Well Developed and Well Nourished
HEENT: Anicteric
Respiratory: Clear and Non Labored Respirations
Cardiac: Regular Rhythm
Neuro: Awake and Other (expressive aphasia)
Impression / Plan
-
Stroke: MRI as below
-diagnosis is threat to bodily function, and patient with severe deficits as noted as result of stroke
-Echo: Normal LV size and function with no regional wall motion abnormalities. LVEF is 60-65% by visual estimation. Moderate concentric LVH. Normal right ventricular size and function. No significant valvular disease. No obvious shunting on
agitated saline injection.
-Dr. Emanuel and I discussed with patient/mom risk/benefits of MARIA ESTHER and loop, and we agreed to set up loop recorder for tomorrow, and no MARIA ESTHER. Will arrange.
HTN:
-severely elevated on arrival
-improved, primary team working on management
Tobacco abuse:
-needs total cessation moving forward
Data:
Brain MRI: LARGE REGION of ACUTE ISCHEMIC INFARCTION in the left middle cerebral artery territory involving the LEFT PARIETAL LOBE, POSTERIOR LEFT FRONTAL LOBE, and LEFT INSULAR CORTEX. 1.0 cm subacute ischemic white matter infarct in the posterior
right frontal lobe. Moderate-sized chronic ischemic infarct in the anterior inferior right frontal lobe. Chronic infarcts in the [place]. Chronic lacunar infarcts in both thalami. Severe white matter leukoaraiosis in the frontal and parietal lobes.
Tiny chronic intraparenchymal microhemorrhages in a distribution most consistent with mild hypertensive microangiopathy. Mild diffuse cerebral and cerebellar volume loss. 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
Data Reviewed
-
EKG: Tracing Personally Visualized and interpreted (NSR, LAD- 79 BPM)
MRI: Report Reviewed by me
Medical Tests (Nuc Med, Echo etc): Report Reviewed by me (Echo: Normal LV size and function with no regional wall motion abnormalities. LVEF is 60-65% by visual estimation. Moderate concentric LVH. Normal right ventricular size and function. No
significant valvular disease. No obvious shunting on agitated saline injection.)
Labs: Labs Reviewed by me
[2024-09-08] MEDS: LIPITOR 40 MG PO (17:25)
[2024-09-08] MEDS: TRANDATE 100 MG PO (20:21)
[2024-09-09 03:19] VITALS: BP 154/95
[2024-09-09 07:40] LABS: Hematocrit 45.6 % (39.0-52.0); Hemoglobin 15.7 g/dL (13.0-18.0); Mean Corp Hgb Conc. 34.4 g/dL (33.0-37.0); Mean Corpuscular Hgb 30.7 pg (27.0-31.0); Mean Corpuscular Volume 89.2 fL (80.0-94.0); Platelet Count 242 10^3/uL (130-400); Red Blood Cell Count 5.11 10^6/uL (4.70-6.10); Red Cell Dist. Width 12.7 % (11.5-14.5); White Blood Cell Count 8.3 10^3/uL (4.8-10.8)
[2024-09-09 08:10] VITALS: BP 181/117
[2024-09-09 08:15] LABS: Blood Urea Nitrogen 17 mg/dl (9-20); Calcium 8.9 mg/dl (8.4-10.2); Carbon Dioxide 23 mmol/L (22-30); Chloride 108 mmol/L (98-107); Estimated Creatinine Clearance 86 ml/min; Glucose 92 mg/dl (70-99); Sodium 139 mmol/L (135-145); eGFR > 60.00
[2024-09-09] MEDS: NICODERM TRANSDERMAL 14 MG TRANSDERM (08:23)
[2024-09-09] MEDS: LOW STRENGTH ASPIRIN 81 MG PO (08:27)
[2024-09-09] MEDS: TRANDATE 100 MG PO ×2 (08:27→21:00)
[2024-09-09] MEDS: MIRALAX 17 GRAMS PO (08:27)
[2024-09-09 11:39] VITALS: BP 143/91
[2024-09-09] MEDS: NORVASC 2.5 MG PO ×2 (13:15→21:01)
--- NOTE | 2024-09-09 14:32 | W.PN.CD ---
Today's Communication / Plan
-
- ILR today
Impression / Plan
-
Stroke: MRI as below
-diagnosis is threat to bodily function, and patient with severe deficits as noted as result of stroke
-Echo: Normal LV size and function with no regional wall motion abnormalities. LVEF is 60-65% by visual estimation. Moderate concentric LVH. Normal right ventricular size and function. No significant valvular disease. No obvious shunting on
agitated saline injection.
-High risk of MARIA ESTHER and deferred by discussion as per Dr. Emanuel and benjamin.
- Plan for ILR today for AF surveillance.
HTN:
-severely elevated on arrival
-improved, primary team working on management
Tobacco abuse:
-needs total cessation moving forward
Data:
Brain MRI: LARGE REGION of ACUTE ISCHEMIC INFARCTION in the left middle cerebral artery territory involving the LEFT PARIETAL LOBE, POSTERIOR LEFT FRONTAL LOBE, and LEFT INSULAR CORTEX. 1.0 cm subacute ischemic white matter infarct in the posterior
right frontal lobe. Moderate-sized chronic ischemic infarct in the anterior inferior right frontal lobe. Chronic infarcts in the [place]. Chronic lacunar infarcts in both thalami. Severe white matter leukoaraiosis in the frontal and parietal lobes.
Tiny chronic intraparenchymal microhemorrhages in a distribution most consistent with mild hypertensive microangiopathy. Mild diffuse cerebral and cerebellar volume loss. 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
Physical Exam
Vital Signs/Labs
Vital Signs
Temp Pulse Resp BP Pulse Ox
98.2 F 72 20 185/100 93
09/09/24 11:39 09/09/24 11:39 09/09/24 11:39 09/09/24 13:15 09/09/24 11:39
09/09/24 06:55
09/09/24 06:55
PT 13.1 Sec (11.4-14.6) 09/03/24 20:52
INR 0.96 09/03/24 20:52
APTT 30.9 Sec (23.4-35.0) 09/03/24 20:52
Triglycerides Cancelled 09/03/24 23:39
LDL Cholesterol, Calc Cancelled 09/03/24 23:39
VLDL Cholesterol, Calc Cancelled 09/03/24 23:39
HDL Cholesterol Cancelled 09/03/24 23:39
Physical Exam
Constitutional: No acute distress and Comfortable
EENT: Anicteric and Moist mucous membranes
Cardiovascular: Rhythm & rate is regular, Pedal edema is absent and JVD pressure is normal
Respiratory: Respiratory effort normal and Lungs clear to auscul.
GI: Soft and Normal bowel sounds
Neuro/Psych: Alert and Other (aphasic)
Other: Skin
Data Reviewed
-
Date of Service: September 09, 2024
Medical Decision Making: Reviewed Test Results, Test Interpretation and Review of Case with other Provider
EKG: Tracing Personally Visualized and interpreted
Echo: Report Reviewed by me
Labs: Labs Reviewed by me
Old Records: Reviewed
--- NOTE | 2024-09-09 14:34 | ITS.CL.IMPLP ---
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
Implant Loop
Procedure Report:
Procedure: Insertion of Loop Recorder.�
Date of the procedure: 09/09/2024
Procedure Physician: Johnny Choi MD [facility]
Indication: Cryptogenic stroke
Description of the procedure:
Patient was brought to the holding area after informed consent was obtained from the patient. The time-out was performed immediately before the procedure.
The left parasternal chest area was prepped and draped in sterile fashion with chlorhexidine prep x 3 times. Lidocaine 1% was injected subcutaneously for local anesthesia. The loop recorder was tunneled and then injected into the subcutaneous
tissue. The tunneling tool was removed leaving the loop recorder in place. The dermis was closed with steristrips and a pressure Tegaderm dressing was placed. There were no immediate complications.
Post procedure, the device was interrogated and showed good detectable P and R waves.
There were no immediate complications.
Device:
LINQII; Model: [id number]; Serial #:[id number]
R wave amplitude: 0.32 mV
Final Programming:
��������������� Tachycardia Detection: >182 bpm for 16 beats
��������������� Bradycardia Detection: 30 bpm for 12 beats, Asystole for 5 seconds.
��������������� Atrial fibrillation detection: On with > 10 min duration
Conclusion:
Successful insertion of loop recorder.
Recommendation:
Routine post-insert loop care.
--- NOTE | 2024-09-09 14:52 | W.PN.HOSP.TC ---
Addendum entered and electronically signed by Micaela Thomas MD 09/09/24 18:36:
I saw and evaluated the patient independently. I reviewed the resident�s note and agree with findings and plan as documented by Dr. Valadez.
GENERAL: well developed, well nourished, male --angry and doesn't want to work with therapy-- expressive aphasia
HEENT: NC/AT
HEART: regular rate and rhythm, +S1, +S2
LUNGS : clear to auscultation bilaterally
ABDOM: soft, nontender, nondistended, + bowel sounds
EXT: no cyanosis, clubbing, or edema
NEUROLOGIC: expressive aphasia, right hemiparesis
Acute ischemic CVA with severe neurologic impairment--Symptomatically with right hemiparesis, expressive aphasia, gaze abnormality--CTA with previous infarct, CT perfusion and MRI with large left ischemic stroke--apprec neurology, echo with bubble
study neg--apprec PM&R--for acute rehab when medically stable--control BP, changing IV meds to oral--PT/OT--speech with IDD4/thins--LDL 95, cont statin--Continue to monitor NIHSS and neurocheck--Likely will need Linq device (cards agreeable) and
MARIA ESTHER per neuro (cards not agreeable, pt too high risk), apprec input
essential Hypertension--BP elevated--s/p 24 hours of permissive HTN--start standing labetalol with holding parameters, add 2nd agent as no room with HR to increase labetalol--
Tobacco use--must quit--Nicotine patches ordered if needed
DVT proph-- SCDs
CODE STATUS-- Full code
Original Note:
Today's Communication/Plan
-
.
Assessment / Plan
Assessment / Plan
A/P:
# Acute CVA with severe neurologic impairment
Symptomatically with right hemiparesis, expressive aphasia, gaze abnormality
Differential strokes include cardioembolic disease (most likely), versus atheroembolic versus paradoxical versus HTN
CTA showed previous right frontal infarct and pontine lacunar infarcts; no ASCVD or LVO
CT perfusion scan shows significant sized infarct of left parieto-occipital region
MRI Brain:
1. LARGE REGION of ACUTE ISCHEMIC INFARCTION in the left middle cerebral artery territory involving the LEFT PARIETAL LOBE, POSTERIOR LEFT FRONTAL LOBE, and LEFT INSULAR CORTEX.
2. 1.0 cm subacute ischemic white matter infarct in the posterior right frontal lobe.
3. Moderate-sized chronic ischemic infarct in the anterior inferior right frontal lobe.
4. Chronic infarcts in the [place].
5. Chronic lacunar infarcts in both thalami.
6. Severe white matter leukoaraiosis in the frontal and parietal lobes.
7. Tiny chronic intraparenchymal microhemorrhages in a distribution most consistent with mild hypertensive microangiopathy.
8. Mild diffuse cerebral and cerebellar volume loss.
9. 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
TTE 09/07: negative bubble study, no valvular dysfunction
Cont rectal aspirin
LDL 95, A1c 5.6%
Started Lipitor 40 mg (LDL goal < 70)
Standing hydralazine/labetalol started yesterday, blood pressure still elevated
- Labetelol transitioned to PO, PO Norvasc added to regimen
IDDSI 4 per speech; patient tolerating diet, can start oral meds (crushed in pur�e)
Continue to monitor NIHSS and neurocheck
Continue PT/OT; recommended acute rehab, physiatry accepts pending LINQ
Seen by cardiology; MARIA ESTHER is not a viable option considering impaired swallowing; ILR to be placed today
# Hypertension
BP elevated here, presence of lacunar infarcts on CT likely correlate with chronic hypertension
Not currently on any antihypertensive agents at home
48 hours of permissive HTN per stroke protocol completed; maintain BP goal SBP <130
Should be started on PO CCB + ARB/ACEi prior to d/c
# Tobacco use
Encourage absolute smoking cessation (1/2PPD SOLAR PHOTOVOL[employer]IC CREW LEAD)
Nicotine patches ordered if needed
Diet: IDDSM4; oral meds crushed
DVT prophylaxis: SCDs, rectal aspirin
CODE STATUS: Full code
DW mother at bedside
Anticipated Discharge: 24 - 48 hours
Subjective/Interval History
-
Date of Service: September 09, 2024
Patient seen and examined while in bed this morning. Patient mother at bedside. History limited secondary to expressive aphasia.
Objective Data
-
Labs:
Laboratory Results
09/09/24
06:55
WBC 8.3
Hgb 15.7
Hct 45.6
Plt Count 242
Sodium 139
Potassium 4.0
Chloride 108 H
Carbon Dioxide 23
BUN 17
Creatinine 1.0
Glucose 92
Calcium 8.9
Vital Signs:
Vital Signs
Temp Pulse Resp BP Pulse Ox
98.2 F 72 20 185/100 93
09/09/24 11:39 09/09/24 11:39 09/09/24 11:39 09/09/24 13:15 09/09/24 11:39
I&O
09/08/24 09/09/24 09/10/24
06:59 06:59 06:59
Intake Total 980 / 980 720 / 720
Output Total 1500 / 1500 500 / 500
Balance -520 / -520 220 / 220
Review of Systems
-
Unable to obtain full review of systems at this time due to: Other (expressive aphasia)
Physical Exam
-
General: No Apparent Distress
HEENT: Normocephalic and Atraumatic
Respiratory: Clear to Auscultation
Cardiac: Regular Rhythm and S1/S2
GI: Soft
Musculoskeletal: No Clubbing, No Cyanosis and No Edema
Skin: Warm and Dry
Neuro: Awake and Other (right sided hemiparesis, right sided facial droop, expressive aphasia)
Psych: Calm
Data Reviewed
-
Labs: Labs Reviewed by me
--- NOTE | 2024-09-09 15:08 | CM ---
Patient seen at bedside on with daughter, ex and physician. Patient family and physician discussed at length medical concerns, patient for tap today per physician. Patient family and physician reviewed next steps and medical concerns.
Per family patient for surgery 09/14/24. CM will send additional referrals and reach out to possible facilities. CM will continue to follow for discharge planning needs.
Plan; SNF
--- NOTE | 2024-09-09 15:19 | CM ---
Patient and mother seen at bedside on . Patient with therapy at time of visit. Patient pending MA response from [facility]. CM will continue to follow for discharge planning needs.
[facility]; [facility] pending acceptance and MA status
[2024-09-09 15:47] VITALS: BP 144/95
[2024-09-09] MEDS: LIPITOR 40 MG PO (16:35)
[2024-09-09 23:04] VITALS: BP 130/90
--- NOTE | 2024-09-10 05:46 | PTCARENOTE ---
Pt extremely agitated at approx 0215, shouting and grunting loudly. Multiple staff members attempted to assist pt but pt denied need for bathroom, pain, or any physical needs by shaking head or 'waving' staff away. Upon reading prior nurses' note it
appeared pt had similar episode on 09/07 and was medicated with prn ativan. Urbano LAM made aware and also made aware that ativan is no longer on pt's MAR. Urbano LAM gave order for PO tylenol and melatonin which pt refused to take. Pt eventually fell
asleep with no further re-occurrence of agitation.
[2024-09-10 07:00] VITALS: BP 189/107
[2024-09-10] MEDS: NORVASC 2.5 MG PO (07:59)
[2024-09-10] MEDS: LOW STRENGTH ASPIRIN 81 MG PO (07:59)
[2024-09-10] MEDS: TRANDATE 100 MG PO ×2 (08:00→20:09)
[2024-09-10] MEDS: NICODERM TRANSDERMAL 14 MG TRANSDERM (08:00)
[2024-09-10] MEDS: MIRALAX 17 GRAMS PO (08:00)
[2024-09-10 08:08] LABS: Hematocrit 45.9 % (39.0-52.0); Hemoglobin 15.7 g/dL (13.0-18.0); Mean Corp Hgb Conc. 34.2 g/dL (33.0-37.0); Mean Corpuscular Hgb 30.3 pg (27.0-31.0); Mean Corpuscular Volume 88.6 fL (80.0-94.0); Mean Platelet Volume 9.1 fL (7.4-10.4); Platelet Count 258 10^3/uL (130-400); Red Blood Cell Count 5.18 10^6/uL (4.70-6.10); Red Cell Dist. Width 12.6 % (11.5-14.5); White Blood Cell Count 10.2 10^3/uL (4.8-10.8)
[2024-09-10 08:59] LABS: Blood Urea Nitrogen 19 mg/dl (9-20); Calcium 8.9 mg/dl (8.4-10.2); Carbon Dioxide 23 mmol/L (22-30); Chloride 109 mmol/L (98-107); Estimated Creatinine Clearance 96 ml/min; Glucose 89 mg/dl (70-99); Potassium 4.1 mmol/L (3.5-5.1); Sodium 140 mmol/L (135-145); eGFR > 60.00
[2024-09-10 09:15] VITALS: BP 149/95
[2024-09-10 12:32] VITALS: BP 149/95
[2024-09-10 12:41] VITALS: BP 149/95
--- NOTE | 2024-09-10 13:43 | W.PN.HOSP.TC ---
Addendum entered and electronically signed by Micaela Thomas MD 09/10/24 18:39:
I saw and evaluated the patient independently. I reviewed the resident�s note and agree with findings and plan as documented by Dr. Valadez.
GENERAL: well developed, well nourished, male-- expressive aphasia
HEENT: NC/AT
HEART: regular rate and rhythm, +S1, +S2
LUNGS : clear to auscultation bilaterally
ABDOM: soft, nontender, nondistended, + bowel sounds
EXT: no cyanosis, clubbing, or edema
NEUROLOGIC: expressive aphasia, right hemiparesis
Acute ischemic CVA with severe neurologic impairment--Symptomatically with right hemiparesis, expressive aphasia, gaze abnormality--CTA with previous infarct, CT perfusion and MRI with large left ischemic stroke--apprec neurology, echo with bubble
study neg--apprec PM&R--for acute rehab when medically stable--control BP, changing IV meds to oral--PT/OT--speech with IDD4/thins--LDL 95, cont statin--Continue to monitor NIHSS and neurocheck--Likely will need Linq device (cards agreeable) and
MARIA ESTHER per neuro (cards not agreeable, pt too high risk), apprec input
essential Hypertension--BP elevated--s/p 24 hours of permissive HTN--start standing labetalol with holding parameters, added norvasc--adjust dosing as needed
Tobacco use--must quit--Nicotine patches ordered if needed
DVT proph-- SCDs
CODE STATUS-- Full code
Original Note:
Today's Communication/Plan
-
.
Assessment / Plan
Assessment / Plan
A/P:
# Acute CVA with severe neurologic impairment
Symptomatically with right hemiparesis, expressive aphasia, gaze abnormality
Differential strokes include cardioembolic disease (most likely), versus atheroembolic versus paradoxical versus HTN
CTA showed previous right frontal infarct and pontine lacunar infarcts; no ASCVD or LVO
CT perfusion scan shows significant sized infarct of left parieto-occipital region
MRI Brain:
1. LARGE REGION of ACUTE ISCHEMIC INFARCTION in the left middle cerebral artery territory involving the LEFT PARIETAL LOBE, POSTERIOR LEFT FRONTAL LOBE, and LEFT INSULAR CORTEX.
2. 1.0 cm subacute ischemic white matter infarct in the posterior right frontal lobe.
3. Moderate-sized chronic ischemic infarct in the anterior inferior right frontal lobe.
4. Chronic infarcts in the [place].
5. Chronic lacunar infarcts in both thalami.
6. Severe white matter leukoaraiosis in the frontal and parietal lobes.
7. Tiny chronic intraparenchymal microhemorrhages in a distribution most consistent with mild hypertensive microangiopathy.
8. Mild diffuse cerebral and cerebellar volume loss.
9. 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
TTE 09/07: negative bubble study, no valvular dysfunction
Cont rectal aspirin
LDL 95, A1c 5.6%
Started Lipitor 40 mg (LDL goal < 70)
Standing hydralazine/labetalol started yesterday, blood pressure still elevated
- Labetelol transitioned to PO, PO Norvasc added to regimen
- Blood pressures continue to be intermittently elevated, will increase dosage
IDDSI 4 per speech; patient tolerating diet, can start oral meds (crushed in pur�e)
Continue to monitor NIHSS and neurocheck
Continue PT/OT; recommended acute rehab, physiatry accepts pending LINQ, BP control, BM
Seen by cardiology; ILR placed yesterday, successful
# Hypertension
BP elevated here, presence of lacunar infarcts on CT likely correlate with chronic hypertension
Not currently on any antihypertensive agents at home
48 hours of permissive HTN per stroke protocol completed; maintain BP goal SBP <130
Should be started on PO CCB + ARB/ACEi prior to d/c
# Tobacco use
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
Nicotine patches ordered if needed
Diet: IDDSM4; oral meds crushed
DVT prophylaxis: SCDs, rectal aspirin
CODE STATUS: Full code
DW mother at bedside
Anticipated Discharge: 24 - 48 hours
Subjective/Interval History
-
Date of Service: September 10, 2024
Patient seen and examined while resting in bed. History is limited secondary to expressive aphasia. Unsure if he has had a bowel movement. Mother endorses it may have been a couple of days since last BM. Mother believes patient is in a better mood
today.
Objective Data
-
Labs:
Laboratory Results
09/10/24
07:22
WBC 10.2
Hgb 15.7
Hct 45.9
Plt Count 258
Sodium 140
Potassium 4.1
Chloride 109 H
Carbon Dioxide 23
BUN 19
Creatinine 0.9
Glucose 89
Calcium 8.9
Vital Signs:
Vital Signs
Temp Pulse Resp BP Pulse Ox
98.8 F 69 17 149/95 100
09/10/24 07:00 09/10/24 09:15 09/10/24 07:00 09/10/24 09:15 09/10/24 07:00
I&O
09/09/24 09/10/24 09/11/24
06:59 06:59 06:59
Intake Total 720 / 720
Output Total 500 / 500 700 / 700
Balance 220 / 220 -700 / -700
Review of Systems
-
Unable to obtain full review of systems at this time due to: Other (expressive aphasia)
Physical Exam
-
General: Well Developed, Well Nourished, No Apparent Distress and Comfortable
HEENT: Normocephalic, Atraumatic and Moist Mucous Membranes
Respiratory: Clear to Auscultation; Negative Wheezes, Rales or Rhonchi
Cardiac: Regular Rhythm, S1/S2 and Other (ILR in place; surgical site is clean/dry/intact and without signs of infection)
GI: Soft and Nontender
Musculoskeletal: No Clubbing, No Cyanosis and No Edema
Skin: Warm and Dry
Neuro: Awake and Other (right sided hemiparesis, expressive aphasia, right sided facial droop)
Psych: Calm
[2024-09-10 15:00] VITALS: BP 158/92
--- NOTE | 2024-09-10 16:08 | PTOTSP ---
MORTGAGE CLOSING CLERK NOTE
Printed out aphasia communication strategies and posted on board in room for family. Please use field=2 flip book/communication board. Accuracy decreases as picture field increases with Augmentative and Alternative Communication (AAC). See below.
Discussed with staff.
AAC
Field=2: 100% accuracy
Field=9 (paper board): 69% accuracy
Field 16 (large AAC board): 25% accuracy
--- NOTE | 2024-09-10 16:09 | CM ---
Patient seen at bedside with patient mother and physicians. Patient MA application has been submitted [facility]ia[facility] and CM updated [facility] liaision. [facility] to review MA application and will update CM as soon as able. CM will continue to follow
for discharge planning needs.
Plan; [facility]; pending MA number
--- NOTE | 2024-09-10 16:11 | PTOTSP ---
FIELD CONTACT PERSON Note
Printed out aphasia communication strategies and posted on board in room for family. Please use field=2 flip book/communication board. Accuracy decreases as picture field increases with Augmentative and Alternative Communication (AAC). See below.
Discussed with staff.
AAC
Field=2 (flip board): 100% accuracy
Field=9 (laminated board from FIELD CONTACT PERSON office): 69% accuracy
Field 16 (paper board in room): 25% accuracy
[2024-09-10] MEDS: LIPITOR 40 MG PO (18:08)
[2024-09-10] MEDS: NORVASC 5 MG PO (20:10)
[2024-09-10 23:45] VITALS: BP 157/97
[2024-09-11 07:00] VITALS: BP 177/106
[2024-09-11] MEDS: NORVASC 5 MG PO ×2 (08:16→20:30)
[2024-09-11] MEDS: NICODERM TRANSDERMAL 14 MG TRANSDERM (08:17)
[2024-09-11] MEDS: MIRALAX 17 GRAMS PO (08:17)
[2024-09-11] MEDS: LOW STRENGTH ASPIRIN 81 MG PO (08:17)
[2024-09-11] MEDS: TRANDATE 100 MG PO ×2 (08:17→20:30)
--- NOTE | 2024-09-11 11:56 | CM ---
ECHO reviewed chart, MA application has been submitted, [facility] to review MA application, plan accept at [facility] pending MA number. CM will continue to follow for all discharge planning needs.
Plan; [facility], pending MA number
--- NOTE | 2024-09-11 12:15 | W.PN.HOSP.TC ---
Today's Communication/Plan
-
add hydralazine
monitor for BMs
Assessment / Plan
Assessment / Plan
pt is a 59 year old male
Acute ischemic CVA with severe neurologic impairment--Symptomatically with right hemiparesis, expressive aphasia, gaze abnormality--CTA with previous infarct, CT perfusion and MRI with large left ischemic stroke--apprec neurology, echo with bubble
study neg--apprec PM&R--for acute rehab when medically stable--control BP, changing IV meds to oral--PT/OT--speech with IDD4/thins--LDL 95, cont statin--Continue to monitor NIHSS and neurocheck--Likely will need Linq device (cards agreeable) and
MARIA ESTHER per neuro (cards not agreeable, pt too high risk), apprec input
essential Hypertension--BP elevated--s/p 24 hours of permissive HTN--cont labetalol, added norvasc, adding hydralazine--adjust dosing as needed
no documented bowel movements--cont bowel regimen
Tobacco use--must quit--Nicotine patches ordered if needed
dispo--anticipate Friday?
DVT proph-- SCDs
CODE STATUS-- Full code
Anticipated Discharge: > 48 hours
Subjective/Interval History
-
Date of Service: September 11, 2024
pt sleeping, did not wake
Objective Data
-
Vital Signs:
max temp for 24 hours
09/11/24
07:00
Temp 99.5 F
Vital Signs
Temp Pulse Resp BP Pulse Ox
99.5 F 70 12 177/106 93
09/11/24 07:00 09/11/24 07:00 09/11/24 07:00 09/11/24 07:00 09/11/24 07:00
I&O
09/10/24 09/11/24 09/12/24
06:59 06:59 06:59
Intake Total 660 / 660
Output Total 700 / 700 900 / 900
Balance -700 / -700 -240 / -240
Review of Systems
-
Unable to obtain full review of systems at this time due to: Other (sleeping did not wake)
Physical Exam
-
General: Well Developed, Well Nourished and No Apparent Distress
HEENT: Normocephalic and Atraumatic
Respiratory: Clear to Auscultation; Negative Wheezes or Rhonchi
Cardiac: Regular Rhythm and S1/S2; Negative Murmur
GI: Soft, Nontender, Nondistended and Normal Bowel Sounds
Musculoskeletal: No Clubbing, No Cyanosis and No Edema
Neuro: Other (expressive aphasia, right hemiparesis)
[2024-09-11 15:00] VITALS: BP 155/87
[2024-09-11] MEDS: LIPITOR 40 MG PO (17:34)
[2024-09-11] MEDS: APRESOLINE 25 MG PO (20:30)
[2024-09-11 23:31] VITALS: BP 149/77
[2024-09-12 06:47] LABS: Hematocrit 44.6 % (39.0-52.0); Hemoglobin 15.3 g/dL (13.0-18.0); Mean Corp Hgb Conc. 34.3 g/dL (33.0-37.0); Mean Corpuscular Hgb 30.5 pg (27.0-31.0); Mean Corpuscular Volume 88.8 fL (80.0-94.0); Mean Platelet Volume 8.8 fL (7.4-10.4); Platelet Count 292 10^3/uL (130-400); Red Blood Cell Count 5.02 10^6/uL (4.70-6.10); Red Cell Dist. Width 12.5 % (11.5-14.5); White Blood Cell Count 9.8 10^3/uL (4.8-10.8)
[2024-09-12 07:00] VITALS: BP 167/97
[2024-09-12 07:13] LABS: ALT (SGPT) 40 U/L (0-50); AST (SGOT) 28 U/L (17-59); Albumin 3.7 g/dl (3.5-5.0); Alkaline Phosphatase 109 U/L (38-126); Blood Urea Nitrogen 15 mg/dl (9-20); Calcium 8.9 mg/dl (8.4-10.2); Carbon Dioxide 26 mmol/L (22-30); Chloride 109 mmol/L (98-107); Estimated Creatinine Clearance 108 ml/min; Glucose 101 mg/dl (70-99); Magnesium 2.1 mg/dl (1.6-2.3); Potassium 4.5 mmol/L (3.5-5.1); Sodium 141 mmol/L (135-145); Total Bilirubin 0.9 mg/dl (0.2-1.3); Total Protein 6.6 g/dl (6.3-8.2); eGFR > 60.00
[2024-09-12] MEDS: LOW STRENGTH ASPIRIN 81 MG PO (08:45)
[2024-09-12] MEDS: TRANDATE 100 MG PO ×2 (08:45→21:16)
[2024-09-12] MEDS: APRESOLINE 25 MG PO ×3 (08:45→21:16)
[2024-09-12] MEDS: NORVASC 5 MG PO ×2 (08:45→21:16)
[2024-09-12] MEDS: NICODERM TRANSDERMAL 14 MG TRANSDERM (08:46)
[2024-09-12] MEDS: MIRALAX 17 GRAMS PO (08:46)
--- NOTE | 2024-09-12 13:32 | W.PN.HOSP.TC ---
Today's Communication/Plan
-
adding to bowel regimen
d/c planning [place]?
Assessment / Plan
Assessment / Plan
pt is a 59 year old male
Acute ischemic CVA with severe neurologic impairment--Symptomatically with right hemiparesis, expressive aphasia, gaze abnormality--CTA with previous infarct, CT perfusion and MRI with large left ischemic stroke--apprec neurology, echo with bubble
study neg---for acute rehab when medically stable--control BP--PT/OT--speech with IDD4/thins-- cont statin--stop NIHSS and neurocheck--s/p Linq device
essential Hypertension--BP elevated--s/p 24 hours of permissive HTN--cont labetalol, added norvasc, adding hydralazine--adjust dosing as needed
constipation--no documented bowel movements--cont bowel regimen--on miralax--added colace and senna
Tobacco use--must quit--Nicotine patches ordered if needed
dispo--anticipate [place] Friday?
DVT proph-- SCDs
CODE STATUS-- Full code
Anticipated Discharge: 24 - 48 hours
Subjective/Interval History
-
Date of Service: September 12, 2024
no change--expressive aphasia
Objective Data
-
Labs:
Laboratory Results
09/12/24
06:26
WBC 9.8
Hgb 15.3
Hct 44.6
Plt Count 292
Sodium 141
Potassium 4.5
Chloride 109 H
Carbon Dioxide 26
BUN 15
Creatinine 0.8
Glucose 101 H
Calcium 8.9
Total Bilirubin 0.9
AST 28
ALT 40
Alkaline Phosphatase 109
Vital Signs:
max temp for 24 hours
09/11/24
07:00
Temp 99.5 F
Vital Signs
Temp Pulse Resp BP Pulse Ox
97.3 F 66 20 167/97 93
09/12/24 07:00 09/12/24 07:00 09/12/24 07:00 09/12/24 07:00 09/12/24 07:00
I&O
09/11/24 09/12/24 09/13/24
06:59 06:59 06:59
Intake Total 660 / 660 480 / 480
Output Total 900 / 900 200 / 200
Balance -240 / -240 280 / 280
Review of Systems
-
Unable to obtain full review of systems at this time due to: Language Barrier
Physical Exam
-
General: Well Developed, Well Nourished and No Apparent Distress
HEENT: Normocephalic and Atraumatic
Respiratory: Clear to Auscultation; Negative Wheezes or Rhonchi
Cardiac: Regular Rhythm and S1/S2; Negative Murmur
GI: Soft, Nontender, Nondistended and Normal Bowel Sounds
Musculoskeletal: No Clubbing, No Cyanosis and No Edema
Neuro: Other (expressive aphasia--right hemiparesis)
[2024-09-12 15:00] VITALS: BP 150/106
--- NOTE | 2024-09-12 16:18 | CM ---
ECHO reviewed chart, patient MA pending, will review with [facility] tomorrow if MA number received. Will review with [facility] regarding ability to accept. CM will continue to follow for all discharge planning needs.
Plan; MA pending, [facility] once MA approved likely
[2024-09-12] MEDS: LIPITOR 40 MG PO (17:09)
[2024-09-12 21:15] VITALS: BP 161/91
[2024-09-12] MEDS: SENOKOT 17.2 MG PO (21:16)
[2024-09-12] MEDS: COLACE 100 MG PO (21:17)
[2024-09-12 23:39] VITALS: BP 141/67
[2024-09-13 07:43] VITALS: BP 171/100
[2024-09-13] MEDS: MIRALAX 17 GRAMS PO (09:14)
[2024-09-13] MEDS: SENOKOT 17.2 MG PO ×2 (09:14→21:07)
[2024-09-13] MEDS: LOW STRENGTH ASPIRIN 81 MG PO (09:15)
[2024-09-13] MEDS: COLACE 100 MG PO ×2 (09:15→21:07)
[2024-09-13] MEDS: APRESOLINE 25 MG PO ×3 (09:16→21:07)
[2024-09-13] MEDS: NORVASC 5 MG PO ×2 (09:16→21:07)
[2024-09-13] MEDS: NICODERM TRANSDERMAL 14 MG TRANSDERM (09:16)
[2024-09-13] MEDS: TRANDATE 100 MG PO ×2 (09:17→21:07)
--- NOTE | 2024-09-13 09:20 | PTOTSP ---
Speech Language Pathology
Pt seen for speech/language tx. 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 Frustration continues to be noted in therapy sessions. Pt able to accurately identify pictures in a field of 2, both by
name and by function (i.e. 'point to cold' and 'which one would you point to if you needed a blanket?') Unable to utilize letter board. Verbalized 'yes' x1 and 'no' x2. No other verbalizations noted. Able to approximate phoneme /m/ but no C-V
combinations starting with /m/ despite max cueing. Yes/no question typically accurate, although when frustrated, pt puts hand up in air like 'who knows' and scoffs. Pt appropriately laughed x2 during session.
Pt also seen for dysphagia tx. Seen with breakfast tray of pureed solids and thin liquids. Able to drink from cup on own, but required assistance with spoon. Pt either fully cleared oral cavity or had trace diffuse residue, R>L. Able to clear
with sip of liquid, but required oral suctioning x1. Provided regular solid trials. Adequate mastication, bolus formation, and A-P transit with intermittent mild oral residue.
Recommend:
(1) Upgrade to IDDSI Level 5 (minced/moist) and thin liquids
(2) Aspiration precautions: sit upright, slow rate, full supervision with assist as needed, check for pocketing, oral suctioning post P.O. intake
(3) Meds crushed in puree as able
(4) Acute rehab at discharge
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
[2024-09-13] MEDS: DULCOLAX 10 MG PO (12:33)
[2024-09-13 12:41] VITALS: BP 142/97
--- NOTE | 2024-09-13 14:10 | W.PN.UPDATE ---
Update Note
Progress Note Update
I saw and evaluated the patient. I reviewed the resident�s note and agree with findings and plan as documented in the resident�s note.
Acute ischemic CVA -with severe neurologic impairment--Symptomatically with right hemiparesis, expressive aphasia, gaze abnormality--CTA with previous infarct, CT perfusion and MRI with large left ischemic stroke--apprec neurology, echo with bubble
study neg---PT/OT--speech with IDD4/thins-- cont statin--stop NIHSS and neurocheck--s/p Linq device --waiting for acute rehab placement at [facility]
essential Hypertension-uncontrolled--s/p 24 hours of permissive HTN--cont labetalol, added norvasc, adding hydralazine--blood pressure better controlled, will adjust further as needed
constipation--no documented bowel movements--cont bowel regimen-continued MiraLAX. Added Dulcolax
Tobacco use--must quit--Nicotine patches ordered if needed
DVT proph-- SCDs
CODE STATUS-- Full code
Discharge planning for acute rehab
[2024-09-13 15:17] VITALS: BP 138/94
[2024-09-13] MEDS: LIPITOR 40 MG PO (15:18)
[2024-09-13 16:02] VITALS: BP 127/86
--- NOTE | 2024-09-13 16:25 | W.PN.HOSP.TC ---
Today's Communication/Plan
-
.
Assessment / Plan
Assessment / Plan
A/P:
# Acute CVA with severe neurologic impairment
Symptomatically with right hemiparesis, expressive aphasia, gaze abnormality
Differential strokes include cardioembolic disease (most likely), versus atheroembolic versus paradoxical versus HTN
CTA showed previous right frontal infarct and pontine lacunar infarcts; no ASCVD or LVO
CT perfusion scan shows significant sized infarct of left parieto-occipital region
MRI Brain:
1. LARGE REGION of ACUTE ISCHEMIC INFARCTION in the left middle cerebral artery territory involving the LEFT PARIETAL LOBE, POSTERIOR LEFT FRONTAL LOBE, and LEFT INSULAR CORTEX.
2. 1.0 cm subacute ischemic white matter infarct in the posterior right frontal lobe.
3. Moderate-sized chronic ischemic infarct in the anterior inferior right frontal lobe.
4. Chronic infarcts in the [place].
5. Chronic lacunar infarcts in both thalami.
6. Severe white matter leukoaraiosis in the frontal and parietal lobes.
7. Tiny chronic intraparenchymal microhemorrhages in a distribution most consistent with mild hypertensive microangiopathy.
8. Mild diffuse cerebral and cerebellar volume loss.
9. 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
TTE 09/07: negative bubble study, no valvular dysfunction
Cont rectal aspirin
LDL 95, A1c 5.6%
Started Lipitor 40 mg (LDL goal < 70)
Continue blood pressure management (see below)
IDDSI 5 per speech; oral meds (crushed in pur�e)
Continue PT/OT; recommended acute rehab, physiatry accepts, BP control, BM
Seen by cardiology; ILR placed yesterday, successful
# Hypertension
BP elevated here, presence of lacunar infarcts on CT likely correlate with chronic hypertension
Not currently on any antihypertensive agents at home
48 hours of permissive HTN per stroke protocol completed; maintain BP goal SBP <130
Started on labetalol, Norvasc, hydralazine here; will adjust further as needed
# Tobacco use
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
Nicotine patches ordered if needed
# Constipation
No documented bowel movement
Continue bowel regimen
Dulcolax added today
Diet: IDDSM5; oral meds crushed
DVT prophylaxis: SCDs, rectal aspirin
CODE STATUS: Full code
Anticipated Discharge: Within 24 hours
Subjective/Interval History
-
Date of Service: September 13, 2024
Patient seen and examined while resting comfortably in bed. History is limited secondary to expressive aphasia.
Objective Data
-
Vital Signs:
Vital Signs
Temp Pulse Resp BP Pulse Ox
97.2 F 82 14 127/86 93
09/13/24 16:02 09/13/24 16:02 09/13/24 16:02 09/13/24 16:02 09/13/24 16:02
I&O
09/12/24 09/13/24 09/14/24
06:59 06:59 06:59
Intake Total 480 / 480 960 / 960
Output Total 200 / 200 1400 / 1400
Balance 280 / 280 -440 / -440
Review of Systems
-
Unable to obtain full review of systems at this time due to: Other (Expressive aphasia)
Physical Exam
-
General: No Apparent Distress
HEENT: Normocephalic, Atraumatic and Moist Mucous Membranes
Respiratory: Clear to Auscultation; Negative Wheezes, Rales or Rhonchi
Cardiac: Regular Rhythm and S1/S2
GI: Soft and Nontender
Musculoskeletal: No Clubbing, No Cyanosis and No Edema
Skin: Warm
Neuro: Awake, Alert and Other (Right-sided hemiparesis, right-sided facial droop, expressive aphasia)
Psych: Calm
Data Reviewed
-
Labs: Labs Reviewed by me
[2024-09-13 23:10] VITALS: BP 148/79
[2024-09-14 00:21] VITALS: BP 148/79
--- NOTE | 2024-09-14 05:45 | W.PN.UPDATE ---
Update Note
Progress Note Update
Called to evaluate patient s/p unwitnessed fall. Per RN, she heard noise from patient's room and walked in to find patient sitting on floor between bed and window. Per RN, bed alarm was on bed but at the top of the mattress and did not alarm when
patient OOB.
Patient evaluated. Patient is very agitated and frustrated during evaluation. Patient unable to communicate exactly how/why he got out of bed. Patient strongly denies hitting head. Patient denies any pain. Assessment completed, no abrasions, no
contusions, no obvious injuries. Head w/no signs of lacerations, bruising, hematomas. Patient can move his left extremities w/o pain, right side extremities remain flacid. Per RN, assessment remains unchanged from prior assessment. Patient is on low
dose ASA. BP 174/100, HR 68, Temp 97.6 Resp 18, 91% on room air.
Continue to monitor patient for pain, bruising, change in mental status, movement restrictions. Maintain on fall precautions, bed alarm. Out of an abundance of caution will order Head CT w/o IV contrast.
[2024-09-14 05:56] VITALS: BP 174/100
[2024-09-14] MEDS: APRESOLINE 25 MG PO (06:00)
--- NOTE | 2024-09-14 07:12 | FALL ---
Description of Fall:
Patient found sitting up on the floor next to his bed. Bed alarm was plugged in but moved up in the bed. Hourly rounding was performed.
Injuries Noted:
No injuries noted.
Action Taken:
Assisted back to bed. Bed alarm was repositioned and call salazar was given to patient. Fall education reinforced.
Name of Provider Notified: Lexii LAM
--- NOTE | 2024-09-14 08:03 | W.PN.HOSP.TC ---
Addendum entered and electronically signed by Tashi Barrera MD 09/14/24 14:25:
I saw and evaluated the patient. I reviewed the resident�s note and agree with findings and plan as documented in the resident�s note.
I saw and evaluated the patient. I reviewed the resident�s note and agree with findings and plan as documented in the resident�s note.
Acute ischemic CVA -with severe neurologic impairment--Symptomatically with right hemiparesis, expressive aphasia, gaze abnormality--CTA with previous infarct, CT perfusion and MRI with large left ischemic stroke--apprec neurology, echo with bubble
study neg---PT/OT--speech with IDD4/thins-- cont statin--stop NIHSS and neurocheck--s/p Linq device --waiting for acute rehab placement at [facility]
essential Hypertension-uncontrolled--s/p 24 hours of permissive HTN--continue labetalol/Norvasc. Dose of hydralazine increased.
constipation--bowel movement with laxatives
Tobacco use--must quit--Nicotine patches ordered if needed
Mechanical fall -patient had a mechanical fall yesterday. Repeat CT head negative for any acute intracranial hemorrhage. Bed alarm to be used during nighttime.
DVT proph-- SCDs
CODE STATUS-- Full code
Recheck blood pressure now and if improved discussed with [facility] if patient can be accepted for transfer today.
Original Note:
Today's Communication/Plan
-
.
Assessment / Plan
Assessment / Plan
A/P:
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
- Subsequent right hemiparesis, expressive aphasia, gaze abnormality
- CTA showed previous right frontal infarct and pontine lacunar infarcts; no ASCVD or LVO
- CT perfusion scan shows significant sized infarct of left parieto-occipital region
- MRI Brain (09/05):
1. LARGE REGION of ACUTE ISCHEMIC INFARCTION in the left middle cerebral artery territory involving the LEFT PARIETAL LOBE, POSTERIOR LEFT FRONTAL LOBE, and LEFT INSULAR CORTEX.
2. 1.0 cm subacute ischemic white matter infarct in the posterior right frontal lobe.
3. Moderate-sized chronic ischemic infarct in the anterior inferior right frontal lobe.
4. Chronic infarcts in the [place].
5. Chronic lacunar infarcts in both thalami.
6. Severe white matter leukoaraiosis in the frontal and parietal lobes.
7. Tiny chronic intraparenchymal microhemorrhages in a distribution most consistent with mild hypertensive microangiopathy.
8. Mild diffuse cerebral and cerebellar volume loss.
9. 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
TTE 09/07: negative bubble study, no valvular dysfunction
Metabolic Risk Factors Neg: LDL 95, A1c 5.6%
Started Lipitor 40 mg (LDL goal < 70)
Continue blood pressure management (see below)
IDDSI 5 per speech; oral meds (crushed in pur�e)
Continue PT/OT; recommended acute rehab, physiatry accepts, BP control, BM
Seen by cardiology; ILR placed, successful
# Hypertension
BP elevated here, presence of lacunar infarcts on CT likely correlate with chronic hypertension
Not currently on any antihypertensive agents at home
48 hours of permissive HTN per stroke protocol completed; maintain BP goal SBP <130
Started on labetalol, Norvasc, hydralazine here; will adjust further as needed
# Tobacco use
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
Nicotine patches ordered if needed
# Constipation (resolved)
Patient with bowel movement yesterday
Continue bowel regimen
# Fall (09/14)
Patient denies prodromal symptoms
CT Head w/o contrast (09/14): evolutionary changes of prior stroke, with no evidence for acute intracranial hemorrhage
Diet: IDDSM5; oral meds crushed
DVT prophylaxis: SCDs, rectal aspirin
CODE STATUS: Full code
Anticipated Discharge: Within 24 hours
Subjective/Interval History
-
Date of Service: September 14, 2024
Patient seen and examined while resting comfortably in bed, watching TV. Patient just returned from Head CT. Per nursing, patient had a fall last night. History limited secondary to expressive aphasia and patient willingness to answer questions, but
will shake his head no or nod his head yes at certain questions. Patient denies feeling chest pain, dizziness, or short of breath prior to fall episode. Patient denies any pain or bruising anywhere s/p fall. Otherwise unable to obtain much history
regarding circumstances of fall.
Objective Data
-
Vital Signs:
Vital Signs
Temp Pulse Resp BP Pulse Ox
97.6 F 68 18 174/100 91
09/14/24 05:56 09/14/24 05:56 09/14/24 05:56 09/14/24 05:56 09/14/24 05:56
I&O
09/13/24 09/14/24 09/15/24
06:59 06:59 06:59
Intake Total 960 / 960 540 / 540
Output Total 1400 / 1400 900 / 900
Balance -440 / -440 -360 / -360
Review of Systems
-
Unable to obtain full review of systems at this time due to: Other (expressive aphasia)
Cardiac: Denies Chest Pain or Syncope
Musculoskeletal: Denies Joint Pain or Muscle Pain
Neuro: Denies No Symptoms
Physical Exam
-
General: No Apparent Distress
HEENT: Normocephalic, Atraumatic and Moist Mucous Membranes
Respiratory: Clear to Auscultation; Negative Wheezes, Rales or Rhonchi
Cardiac: Regular Rhythm and S1/S2
GI: Soft, Nontender and Normal Bowel Sounds
Musculoskeletal: No Clubbing, No Cyanosis and No Edema
Skin: Warm and Dry
Neuro: Awake
Psych: Calm
Data Reviewed
-
CT Scan: Report Reviewed by me and Discussed with Patient
[2024-09-14] MEDS: MIRALAX 17 GRAMS PO (09:37)
[2024-09-14] MEDS: SENOKOT 17.2 MG PO ×2 (09:38→21:04)
[2024-09-14] MEDS: NICODERM TRANSDERMAL 14 MG TRANSDERM (09:38)
[2024-09-14] MEDS: COLACE 100 MG PO ×2 (09:39→21:04)
[2024-09-14] MEDS: NORVASC 5 MG PO ×2 (09:39→21:04)
[2024-09-14] MEDS: TRANDATE 100 MG PO ×2 (09:39→21:04)
[2024-09-14] MEDS: LOW STRENGTH ASPIRIN 81 MG PO (09:40)
--- NOTE | 2024-09-14 10:40 | CM ---
Per Liaison with [facility] due to high BP and fall they will not be able to accept today. CM updated physician and awaiting [facility] confirmation when they are able to accept. CM will continue to follow for discharge planning needs.
Plan;[facility] when medically accepted
[2024-09-14] MEDS: APRESOLINE 50 MG PO ×2 (11:12→21:04)
[2024-09-14 14:26] VITALS: BP 146/94
--- NOTE | 2024-09-14 15:45 | PTOTSP ---
Speech Language Pathology
Pt seen for speech/language tx. Pt sitting upright in chair upon arrival. Less labile this date. Appropriate responses to yes/no questions, frequently with verbalizing 'yes' and 'no' this date. Suspect significant apraxia of speech. Oral
groping noted with attempts at approximating LEAD BURNER SUPERVISOR phoneme production. Attempted /m/ with model and mirror. Pt able to accurately produce 70% of the time. Then attempted 'ma.' Pt able to reproduce with max cueing in 4/8 attempts. Attempted 'mo'
with decreased accuracy. Able to count 1-10 in unison with LEAD BURNER SUPERVISOR with 70% accuracy. Sang 'happy birthday' with 70% accuracy in unison with LEAD BURNER SUPERVISOR. Pt crying after this, suspect secondary to frustration. Encouragement provided. Encouraged pt to
practice counting or singing throughout the day if able and not frustrated.
Pt also seen for dysphagia tx. Upper and lower dentures placed by pt after denture adhesive applied by LEAD BURNER SUPERVISOR. Provided P.O. trials of regular solids and thin liquids. Slightly prolonged mastication noted with trace diffuse oral residue noted, which
he was able to clear with a cued liquid wash. No pocketing noted.
Recommend:
(1) Upgrade to IDDSI Level 6 (soft/bite-sized) and thin liquids
(2) Aspiration precautions: sit upright, slow rate, full supervision with assist as needed, check for pocketing, oral suctioning post P.O. intake
(3) Meds crushed in puree as able
(4) Acute rehab at discharge
(5) LEAD BURNER SUPERVISOR to continue to follow
[2024-09-14] MEDS: LIPITOR 40 MG PO (17:38)
[2024-09-14 23:45] VITALS: BP 159/95
[2024-09-15] MEDS: APRESOLINE 50 MG PO ×2 (03:48→11:29)
[2024-09-15 07:00] VITALS: BP 149/99
--- NOTE | 2024-09-15 07:55 | W.PN.HOSP.TC ---
Addendum entered and electronically signed by Alfonzo Valadez DO, Resident 09/17/24 13:47:
Cytotoxic edema is possible diagnosis for this patient
Original Note:
Today's Communication/Plan
-
.
Assessment / Plan
Assessment / Plan
A/P:
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
- Subsequent right hemiparesis, expressive aphasia, gaze abnormality
- CTA showed previous right frontal infarct and pontine lacunar infarcts; no ASCVD or LVO
- CT perfusion scan shows significant sized infarct of left parieto-occipital region
- MRI Brain (09/05):
1. LARGE REGION of ACUTE ISCHEMIC INFARCTION in the left middle cerebral artery territory involving the LEFT PARIETAL LOBE, POSTERIOR LEFT FRONTAL LOBE, and LEFT INSULAR CORTEX.
2. 1.0 cm subacute ischemic white matter infarct in the posterior right frontal lobe.
3. Moderate-sized chronic ischemic infarct in the anterior inferior right frontal lobe.
4. Chronic infarcts in the [place].
5. Chronic lacunar infarcts in both thalami.
6. Severe white matter leukoaraiosis in the frontal and parietal lobes.
7. Tiny chronic intraparenchymal microhemorrhages in a distribution most consistent with mild hypertensive microangiopathy.
8. Mild diffuse cerebral and cerebellar volume loss.
9. 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
TTE 09/07: negative bubble study, no valvular dysfunction
Metabolic Risk Factors Neg: LDL 95, A1c 5.6%
Started Lipitor 40 mg (LDL goal < 70)
Continue blood pressure management (see below)
IDDSI 6 per speech; oral meds (crushed in pur�e)
Continue PT/OT; recommended acute rehab, physiatry accepts, BP control, BM
Seen by cardiology; ILR placed, successful
# Hypertension
BP elevated here, presence of lacunar infarcts on CT likely correlate with chronic hypertension
Not currently on any antihypertensive agents at home
48 hours of permissive HTN per stroke protocol completed; maintain BP goal SBP <130
Started on labetalol, Norvasc, hydralazine here; continue as outpatient meds
# Tobacco use
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
Nicotine patches ordered if needed
# Constipation (resolved)
Patient with bowel movement yesterday
Continue bowel regimen
# Fall (09/14)
Patient denies prodromal symptoms
CT Head w/o contrast (09/14): evolutionary changes of prior stroke, with no evidence for acute intracranial hemorrhage
Diet: IDDSM6; oral meds crushed
DVT prophylaxis: SCDs, rectal aspirin
CODE STATUS: Full code
Anticipated Discharge: Today
Subjective/Interval History
-
Date of Service: September 15, 2024
Patient seen and examined while resting comfortably in bed. No acute complaints today. History limited to expressive aphasia, able to nod and shake head and say no to questions. Denies CP, SOB, dizziness, ALVARADO, abdominal pain, n/v/d.
Objective Data
-
Labs:
Laboratory Results
09/15/24
06:00
WBC Pending
Hgb Pending
Hct Pending
Plt Count Pending
Sodium Pending
Potassium Pending
Chloride Pending
Carbon Dioxide Pending
BUN Pending
Creatinine Pending
Glucose Pending
Calcium Pending
Vital Signs:
Vital Signs
Temp Pulse Resp BP Pulse Ox
97.6 F 68 12 130/81 94
09/14/24 23:45 09/15/24 03:48 09/14/24 23:45 09/15/24 03:48 09/14/24 23:45
I&O
09/14/24 09/15/24 09/16/24
06:59 06:59 06:59
Intake Total 540 / 540 720 / 720 240 / 240
Output Total 900 / 900 500 / 500 400 / 400
Balance -360 / -360 220 / 220 -160 / -160
Review of Systems
-
Unable to obtain full review of systems at this time due to: Other
History Source: Patient
Constitutional: Reports No Symptoms
Respiratory: Reports No Symptoms
Cardiac: Reports No Symptoms
Abdomen/GI: Reports No Symptoms
Neuro: Reports No Symptoms
Physical Exam
-
General: No Apparent Distress and Comfortable
HEENT: Normocephalic, Atraumatic and Moist Mucous Membranes
Respiratory: Clear to Auscultation; Negative Wheezes, Rales or Rhonchi
Cardiac: Regular Rhythm and S1/S2
GI: Soft, Nontender and Normal Bowel Sounds
Musculoskeletal: No Clubbing, No Cyanosis and No Edema
Neuro: Awake
Psych: Calm
Data Reviewed
-
Labs: Labs Reviewed by me and Discussed with Patient
[2024-09-15] MEDS: MIRALAX 17 GRAMS PO (08:29)
[2024-09-15] MEDS: SENOKOT 17.2 MG PO (08:29)
[2024-09-15] MEDS: LOW STRENGTH ASPIRIN 81 MG PO (08:30)
[2024-09-15] MEDS: NICODERM TRANSDERMAL 14 MG TRANSDERM (08:30)
[2024-09-15] MEDS: COLACE 100 MG PO (08:30)
[2024-09-15] MEDS: TRANDATE 100 MG PO (08:36)
[2024-09-15] MEDS: NORVASC 5 MG PO (08:36)
--- NOTE | 2024-09-15 09:01 | WOUNDNOTE ---
WO RN NOTE: Reviewed chart and met with patient. WO RN consulted for wound on scrotum. Wound appears to be an abrasion. It is superficial and not draining. Will recommend cleaning with normal saline and applying Vaseline daily. Patient also noted
to have a flat, macular rash on back. Patient denies itching, Dr. Barrera made aware. Sacrum and heels intact. Patient turns self easily in bed. He is on a Versa Care Air and moist and minced diet. Plan is for transfer to [facility]. KAEL Mckeon given update.
Will sign off.
--- NOTE | 2024-09-15 09:06 | PN.CDI ---
CDI
- -
CDI:
Physician Documentation Request
Admit Date: 09/03/24 21:56
Dear Doctor Rory,
Please review the following and provide your response in the progress notes.
Clinical Indicators:
The diagnosis of cytotoxic edema was included in the signed CT head 09/14 s/p fall.
Please indicate in your progress notes if you are in agreement that the above diagnosis is valid for this patient:
____ - cytotoxic edema is a valid diagnosis
____ - cytotoxic edema is not a valid diagnosis for this patient
____ - Other
Use of terms such as suspected, likely, concern for, or probable are acceptable for a diagnosis that is being evaluated, monitored or treated as if it exists and can be coded in the inpatient setting, when documented at the time of discharge.
Thank you,
Ronda De Leon RN, BSN
CDI Specialist
tiger text
Please use your independent medical judgment in providing your response.
[2024-09-15 10:06] LABS: Blood Urea Nitrogen 14 mg/dl (9-20); Calcium 9.4 mg/dl (8.4-10.2); Carbon Dioxide 25 mmol/L (22-30); Chloride 107 mmol/L (98-107); Estimated Creatinine Clearance 108 ml/min; Glucose 96 mg/dl (70-99); Potassium 4.9 mmol/L (3.5-5.1); Sodium 138 mmol/L (135-145); eGFR > 60.00
--- NOTE | 2024-09-15 10:27 | CM ---
ECHO reviewed chart, confirmed with liaison from [facility], able to accept patient today around 12:00 p.m. Patients mother, Ilda, updated. ECHO will continue to follow for all discharge planning needs.
Plan; [facility], can accept 12:00 p.m.
[facility]
Report: [id number]
[2024-09-15 10:40] LABS: Hematocrit 46.2 % (39.0-52.0); Mean Corp Hgb Conc. 34.6 g/dL (33.0-37.0); Mean Corpuscular Hgb 30.8 pg (27.0-31.0); Mean Corpuscular Volume 88.8 fL (80.0-94.0); Mean Platelet Volume 8.8 fL (7.4-10.4); Platelet Count 385 10^3/uL (130-400); Red Cell Dist. Width 12.4 % (11.5-14.5); White Blood Cell Count 10.9 10^3/uL (4.8-10.8)
[2024-09-15 11:00] VITALS: BP 136/80
[2024-09-15 15:00] VITALS: BP 141/76
--- NOTE | 2024-09-15 19:17 | W.DCSUMMARY ---
Discharge Summary
Discharge Data
Date of Admission: 09/03/24
Date of Discharge: 09/15/24
Total time spent discharging patient (in min): 31
-
Pending Results: No
Hospital Course
Carson Santos is a 59 year old male with no significant past medical history who presented to [facility] on the evening of 09/03/2024 with acute right sided paralysis and significant aphasia. The patient had apparently been found by a
friend who last spoke to him the day before and became worried when the patient wasn't responding to his calls. The patient was found crawling on the ground and unable to speak.
ED COURSE
In the emergency department, the patient was found in a leftward gaze and right sided facial droop. Additionally, the patient had right sided hemiparesis with 5/5 muscle strength on the left side of his body. He was exhibiting extremely high blood
pressures with systolic blood pressure in the 220s. Other than a mild leukocytosis, labs were unremarkable. A code stroke was called. CT of the head without contrast revealed an old right frontal lobe infarct and old ischemic disease/pontine
lacunar infarcts. A neurologist at [facility] was consulted, and it was felt that no interventions would be beneficial. The patient was admitted for further stroke management and rehabilitation.
HOSPITAL COURSE
Patient was started on rectal aspirin due to NPO status and as needed Labetolol to keep blood pressures around 220 (permissive hypertension). Brain MRI revealed the following:
1. LARGE REGION of ACUTE ISCHEMIC INFARCTION in the left middle cerebral artery territory involving the LEFT PARIETAL LOBE, POSTERIOR LEFT FRONTAL LOBE, and LEFT INSULAR CORTEX.
2. 1.0 cm subacute ischemic white matter infarct in the posterior right frontal lobe.
3. Moderate-sized chronic ischemic infarct in the anterior inferior right frontal lobe.
4. Chronic infarcts in the [place].
5. Chronic lacunar infarcts in both thalami.
6. Severe white matter leukoaraiosis in the frontal and parietal lobes.
7. Tiny chronic intraparenchymal microhemorrhages in a distribution most consistent with mild hypertensive microangiopathy.
8. Mild diffuse cerebral and cerebellar volume loss.
9. 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
After 48 hours of observation, patient remained stable. Testing for an embolic source, including a transthoracic echocardiogram with bubble study did not reveal a source. The patient was given an implantable loop recorder by Cardiology to monitor
for arrhythmic events. As the patient started to tolerate a diet, transition to PO meds was done. The patient was started on a statin medication, oral aspirin, and oral blood pressure medications.
The day prior to discharge, the patient had a fall. He denied any prodromal symptoms or injuries. A CT Scan of the brain revealed no acute abnormalities.
DISCHARGE RECOMMENDATIONS
Patient discharged to [facility] for further physical rehabilitation.
At time of discharge, patient swallowing function was improving and a soft and bite sized diet with thin liquids was advised.
The patients blood pressure regimen was tailored for adequate blood pressure control with Amlodipine 5mg twice a day, hydralazine 50 mg three times a day and labetalol 100 mg twice a day.
Patient should continue secondary stroke prevention with aspirin 81 mg daily and atorvastatin 40 mg daily.
Patient received a LINQ loop recorder during his admission.
Patient should follow up with the [facility]black in 2 weeks, and should establish care with a primary care provider for further recommendations. Information for the [facility] given.
Patient was prescribed 5 days of oral prednisone for a rash that presented on the back on the day of discharge.
See daily progress notes for additional information.
Discharge Plan
-
Patient Disposition: Acute Rehab Facility
Discharge Diagnosis/Procedures: Acute Embolic Stroke with Sequelae
Hypertension
Implantable Loop Recorder Placement
Condition: Fair
Diet: Other diet
Additional Diets: IDDSM 6 - Soft and Bite Sized with Thin Liquids
Activity: With assistance
Bathing Restrictions: After dressing removed
Activity Restrictions/Additional Instructions:
Wound Care Instructions Scrotal Wound- Clean with normal saline and apply Vaseline daily
Use prednisone 20mg/d x5 days for back rash, Can apply zinc calamine lotion/topical steroids once area of involvement is less.
Stand Alone Forms: DC Inst - Implanted Device
Referrals:
[facility]- [facility] [Provider Group] - in two weeks
Referral Note: Please call to make appointment for incision check
Alfonzo Valadez DO, Resident [Family Practice Resident Year1, General] - in one to two weeks
UNKNOWN,NO INTERVIEW [Family Provider]
Prescriptions:
New
atorvastatin 40 mg Tablet
40 mg PO QPM Qty: 30 0RF
amlodipine 5 mg Tablet
5 mg PO BID Qty: 30 0RF
aspirin 81 mg Tablet,Chewable
81 mg PO DAILY Qty: 30 0RF
hydralazine 50 mg Tablet
50 mg PO Q8H Qty: 30 0RF
labetalol 100 mg Tablet
100 mg PO BID Qty: 30 0RF
prednisone 20 mg tablet
20 mg PO DAILY Qty: 5 0RF
Discharge Orders:
Discharge Patient (As Directed); Ordered 09/15/24
Ordered By: Tashi Barrera
Discharge Date and Time
Discharge Date/Time: 09/15/24 16:45
Print Language: HUNGARIAN
== END 2024-09-15 16:45 | DRG 40 ==
LOC: 4 WEST ACU 21:56
PROVIDERS: Internal Medicine; Internal Medicine Cardiovascular Disease; ADMITTING PHYSICIAN Hospitalist; ATTENDING PHYSICIAN Hospitalist; CONSULT PHYSICIAN Internal Medicine; CONSULT PHYSICIAN Physical Medicine & Rehabilitation; CONSULT PHYSICIAN Psychiatry & Neurology Neurology; EMERGENCY PHYSICIAN Emergency Medicine
PROC: 0JH632Z Insertion of Monitoring Device into Chest Subcutaneous Tissue and Fascia, Percutaneous Approach (ICD-10-PCS; 2024-09-09)
DX: I63.412 Cerebral infarction due to embolism of left middle cerebral artery (principal); G93.6 Cerebral edema; G81.91 Hemiplegia, unspecified affecting right dominant side; R41.4 Neurologic neglect syndrome; I16.0 Hypertensive urgency; R29.810 Facial weakness; H53.461 Homonymous bilateral field defects, right side; R47.01 Aphasia; F17.210 Nicotine dependence, cigarettes, uncomplicated; R29.725 NIHSS score 25; I10 Essential (primary) hypertension; E78.5 Hyperlipidemia, unspecified; F41.9 Anxiety disorder, unspecified; K59.00 Constipation, unspecified; W19.XXXA Unspecified fall, initial encounter; R21 Rash and other nonspecific skin eruption; Z86.73 Personal history of transient ischemic attack (TIA), and cerebral infarction without residual deficits
CPT/HCPCS: 0042T; 33285; 70450; 70496; 70498; 70551; 74230; 80048; 80053; 80061; 82962; 83036; 83735; 85025; 85027; 85610; 85730; 92507; 92523; 92526; 92610; 92611; 93005; 93306; 97112; 97116; 97163; 97167; 97530; 97535; 99291; C1764; Q9967

== ENCOUNTER 2025-01-19 21:12 | Inpatient (IN) | payer OTHER, SELFPAY ==
[2025-01-19] VITALS (7 sets, daily range): BP systolic 132–178; BP diastolic 80–116; BMI 28.9; BMI 28.0
[2025-01-19 17:23] LABS: Hematocrit 44.5 % (39.0-52.0); Hemoglobin 14.8 g/dL (13.0-18.0); Mean Corp Hgb Conc. 33.3 g/dL (33.0-37.0); Mean Corpuscular Volume 91.6 fL (80.0-94.0); Nucleated Red Blood Cells % 0 % (-); Platelet Count 299 10^3/uL (130-400); Red Cell Dist. Width 12.5 % (11.5-14.5)
[2025-01-19] MEDS: TYLENOL 1000 MG PO (17:37)
[2025-01-19] MEDS: DUONEB 3 ML INH (17:37)
[2025-01-19] MEDS: DECADRON 10 MG IV (17:37)
[2025-01-19] MEDS: NSS 1000 IV ×2 (17:41→21:41)
[2025-01-19 17:42] LABS: ALT (SGPT) 71 U/L (0-50); AST (SGOT) 48 U/L (17-59); Albumin 4.1 g/dl (3.5-5.0); Alkaline Phosphatase 88 U/L (38-126); Blood Urea Nitrogen 13 mg/dl (9-20); Calcium 8.5 mg/dl (8.4-10.2); Carbon Dioxide 25 mmol/L (22-30); Chloride 107 mmol/L (98-107); Estimated Creatinine Clearance 123 ml/min; Glucose 69 mg/dl (70-99); Potassium 4.2 mmol/L (3.5-5.1); Sodium 137 mmol/L (135-145); Total Protein 7.0 g/dl (6.3-8.2); eGFR > 60.00
[2025-01-19 17:49] LABS: Urine Character Clear (Clear)
[2025-01-19 17:55] LABS: Urine Squamous Cell 0-2 /LPF (Few)
[2025-01-19 17:56] LABS: Urine White Cell 80-90 /HPF (0-5)
[2025-01-19 18:09] LABS: COVID-19 Antigen Negative (Negative)
--- NOTE | 2025-01-19 18:13 | ED.GENMED ---
History of Present Illness
<Alfreda Salazar NP - Last Filed: 01/20/25 19:37>
General
Chief Complaint: Fever
Source: patient
Exam Limitations: none
Time Seen by Provider: 01/19/25 17:00
Nursing documentation reviewed up to this point in time: agreed with
History of Present Illness
History of Present Illness:
Patient to the emergency department with report of fever and shaking chills. Mother states she stopped by today and found him to be lethargic. She states he was trembling and his lips appeared to be below. She was able to drive him to the
emergency department. He has a history of CVA this past spring. Mother states that he is living alone but that she is there every day to assist with ADLs shopping and his basic needs. She saw him yesterday and he was well. On arrival to the
emergency room today he has a temperature of 102.7. He was given Tylenol 1 g p.o. IV fluids started. Mother was also concerned about his breathing. He had been audibly wheezing at home. No history of COPD or asthma.
Past History
<Alfreda Salazar EDGING MACHINE FEEDER - Last Filed: 01/20/25 19:37>
Past History
ED Past Medical History: CVA, GERD, HTN and Hypercholesterolemia
ED Past Surgical History: Other (Yes yeah can you on for we D-dimer and with it that that)
Social History
Tobacco: Smoker
Alcohol: Other (unknown)
Drug: None
Personal: Other
Living: alone
Employment: Other
Family History
Family History: Other (reviewed and non-contributory)
Review of Systems
<Alfreda Salazar EDGING MACHINE FEEDER - Last Filed: 01/20/25 19:37>
Review of Systems
Allergies reviewed?: Yes
All Other Systems: ROS reviewed and negative except as documented in HPI and ROS
Constitutional: Reports fever, fatigue and chills
EENT: Reports no symptoms
Respiratory: Reports other (Audible wheezing)
Cardiac: Reports no symptoms
ABD/GI: Reports no symptoms
: Reports no symptoms
Musculoskeletal: Reports no symptoms
Skin: Reports no symptoms
Neurological: Reports weakness
Psychiatric: Reports no symptoms
Phy Exam
<Alfreda Salazar EDGING MACHINE FEEDER - Last Filed: 01/20/25 19:37>
General Physical Exam
General Presentation: moderate distress
General age: appears stated age
General Skin: warm and dry
General Habitus: normal
General Mental: alert
Cardiovascular Exam
Cardiovascular Exam: regular rate/rhythm and no edema
Pulmonary Exam
Pulmonary Exam: generalized wheezing
Gastrointestinal Exam
Gastrointestinal Exam: non tender and soft
Musculoskeletal Exam
Musculoskeletal Exam: full ROM and neuro vasc intact
Skin Exam
Skin Exam: normal color, warm/dry and no rash
Psychiatric Exam
Psychiatric Exam: normal mood/affect
Sepsis
<Alfreda Salazar NP - Last Filed: 01/20/25 19:37>
Sepsis Screening
Sepsis Assessment: Sepsis Ruled Out
Sepsis Screen
Sepsis Screen: Sepsis Ruled Out
Date: 01/20/25
Time: 19:37
Course
<Alfreda Salazar EDGING MACHINE FEEDER - Last Filed: 01/20/25 19:37>
Orders/Labs/Results
Orders:
Orders
01/19/25 Breakfast
Regular
At Your Request: Limited Participation
Does patient need a safe tray?: No
01/19/25 17:08
Complete Blood Count/With Diff Urgent
Comprehensive Metabolic Panel Urgent
Lactic Acid Urgent
Blood Culture Urgent
ANTHONY Source: Blood/Venous
Specimen Description:
01/19/25 17:29
Acetaminophen [Tylenol] 1,000 mg PO NOW STA
Dexamethasone Sod Phosphate [Decadron] 10 mg IV NOW STA
Ipratropium/Albuterol Sulfate [Duoneb] 3 ml INH R NOW STA
01/19/25 17:30
Urinalysis Reflex To Culture Urgent
Date Specimen was Collected: 01/19/25
Time Specimen was Collected: 17:29
Urine Microscopic Reflex Cult Urgent
Urine Culture Urgent
ANTHONY Source: U
Specimen Description:
Date Specimen was Collected: 01/19/25
Time Specimen was Collected: 17:29
0.9% Sodium Chloride 1000 ml [Nss] 1,000 ml IV BOLUS
01/19/25 17:36
COVID-19 Antigen Urgent
Source: Nasal Swab
Influenza A+B Rapid Molecular Urgent
ANTHONY Source: Nasal Swab
Specimen Description:
01/19/25 18:11
CefTRIAXone [Rocephin] 1,000 mg IV NOW STA
01/19/25 18:14
CR Chest - 2 Views Urgent
Comment:
Reason For Exam: wheezing
01/19/25 19:58
Sterile Water [Sterile Water For Injection] 10 ml .ROUTE .STK-MED ONE
01/19/25 20:39
Admit/Transfer Patient As Directed
Co-Sign Provider:
Level of Care: Inpatient admission
Assign to:: Telemetry
Physician / Group: Francis
Diagnosis: Sepsis, UTI
Reason for Telemetry: Arrhythmia
Date to Stop Telemetry: 01/22/25
Time to Stop Telemetry: 11:00
Reason for Hospitalization: IVF, IV abx
Expected length of stay greater than two midnights?: Yes
ELOS- Estimated Length of Stay in days: 3
I certify the patient meets the requirements for IP care: Yes
PRN Pain Medication Management As Directed
May give lesser potent ordered pain med per pt: Yes
preference::
Protocol:: Medication orders for pain may be administered in a
manner that supports deferring to patient preference
when the pt is:
- Requesting an ordered lesser potent pain medication.
Least to most potent pain medications are defined
as: acetaminophen < NSAID < tramadol < opioids
(morphine, oxycodone, hydromorphone).
- Requesting a lesser dose of the same medication IF
ORDERED.
- Requesting a less intrusive route of administration
if both routes are prescribed by the provider (PO <
IV).
01/19/25 20:41
Code Status As Directed
Resuscitation Status: Full Code
01/19/25 21:00
0.9% Sodium Chloride 1000 ml [Nss] 1,000 ml IV 80 mls/hr
01/19/25 21:23
Acetaminophen [Tylenol] 650 mg PO Q4HPRN PRN
01/19/25 21:23
Activity As Directed
Activity Level: Out of Bed-Early Mobility
With Assistance
Bladder Scan As Directed
Follow Bladder Retention/Intermittent Cath Algorithm?: Yes
PRN if no void in __ hours: 6
Frequency: Per Retention Algorithm
If Bladder Scan Result >: 400
then:: Straight cath
Straight Cath As Directed
Frequency: Per Retention Algorithm
Additional Instructions: straight cath as needed per acute urinary retention algorithm for 24 hrs
Additional Instructions: for bladder scan greater than 400 mL
Vital Signs As Directed
Frequency: Per unit guidelines
Weight As Directed
Frequency: Daily
Ot Eval And Treat Routine
DX Deep Vein Thrombosis Video Routine
01/19/25 22:00
Baclofen [Lioresal] 5 mg PO TID
HydrALAZINE [Apresoline] 50 mg PO Q8H
Melatonin 5 mg PO HS
Trazodone [Desyrel] 25 mg PO HS
01/20/25 07:15
Basic Metabolic Panel IN AM
Complete Blood Count/No Diff IN AM
01/20/25 08:00
Amlodipine [Norvasc] 5 mg PO BID
Aspirin Chewable [Low Strength Aspirin] 81 mg PO DAILY
Escitalopram Oxalate [Lexapro] 20 mg PO DAILY
Labetalol [Trandate] 100 mg PO BID
Pantoprazole [Protonix] 40 mg PO DAILY
Polyethylene Glycol Powder [Miralax] 17 grams PO DAILY
01/20/25 18:00
Atorvastatin [Lipitor] 40 mg PO QPM
Enoxaparin Sodium [Lovenox] 40 mg SC QPM
01/20/25 20:00
CefTRIAXone [Rocephin] 1,000 mg IV Q24H
01/22/25 11:00
DC Protocol for Telemetry ONCE
Abnormal Lab Results
01/19/25 01/19/25
17:08 17:30
WBC 20.0 H 10^3/uL
(4.8-10.8)
Abs Immat Gran (auto) 0.1 H 10^3/uL
(0-0.05)
Absolute Neuts (auto) 15.1 H 10^3/uL
(1.4-6.5)
Absolute Monos (auto) 2.1 H 10^3/uL
(0.1-0.6)
Absolute Eos (auto) 0.9 H 10^3/uL
(0-0.7)
Neutrophils % 75.4 H %
(42.2-75.2)
Lymphocytes % 8.8 L %
(20.5-51.1)
Monocytes % 10.6 H %
(1.7-9.3)
Glucose 69 L mg/dl
(70-99)
ALT 71 H U/L
(0-50)
Ur Occult Blood Reflex 1+ A
(Negative)
Urine Nitrite (Reflex) Positive A
(Negative)
Leukocyte Esterase Rfl 3+ A
(Negative)
Urine RBC 7-10 A /HPF
(0-2)
Urine WBC (Reflex) 80-90 A /HPF
(0-5)
Urine Bacteria (Reflex) Many A
(Negative)
Urine Albumin (Reflex) 1+ A
(Neg - Trace)
01/19/25 17:08
01/19/25 17:08
Vital Signs
Initial and Last Documented VS:
Initial Vital Signs
Temp Pulse Resp BP Pulse Ox
102.6 F H 90 22 176/116 96
01/19/25 16:49 01/19/25 16:49 01/19/25 16:49 01/19/25 16:49 01/19/25 16:49
Last Documented Vital Signs
Temp Pulse Resp BP Pulse Ox
98.1 F 79 18 137/75 98
01/20/25 15:47 01/20/25 15:47 01/20/25 15:47 01/20/25 15:47 01/20/25 15:47
<Rosa Fontaine, DO - Last Filed: 01/19/25 19:03>
Orders/Labs/Results
Orders:
Orders
01/19/25 Breakfast
Regular
At Your Request: Limited Participation
Does patient need a safe tray?: No
01/19/25 17:08
Complete Blood Count/With Diff Urgent
Comprehensive Metabolic Panel Urgent
Lactic Acid Urgent
Blood Culture Urgent
ANTHONY Source: Blood/Venous
Specimen Description:
01/19/25 17:29
Acetaminophen [Tylenol] 1,000 mg PO NOW STA
Dexamethasone Sod Phosphate [Decadron] 10 mg IV NOW STA
Ipratropium/Albuterol Sulfate [Duoneb] 3 ml INH R NOW STA
01/19/25 17:30
Urinalysis Reflex To Culture Urgent
Date Specimen was Collected: 01/19/25
Time Specimen was Collected: 17:29
Urine Microscopic Reflex Cult Urgent
Urine Culture Urgent
ANTHONY Source: U
Specimen Description:
Date Specimen was Collected: 01/19/25
Time Specimen was Collected: 17:29
0.9% Sodium Chloride 1000 ml [Nss] 1,000 ml IV BOLUS
01/19/25 17:36
COVID-19 Antigen Urgent
Source: Nasal Swab
Influenza A+B Rapid Molecular Urgent
ANTHONY Source: Nasal Swab
Specimen Description:
01/19/25 18:11
CefTRIAXone [Rocephin] 1,000 mg IV NOW STA
01/19/25 18:14
CR Chest - 2 Views Urgent
Comment:
Reason For Exam: wheezing
01/19/25 19:58
Sterile Water [Sterile Water For Injection] 10 ml .ROUTE .STK-MED ONE
01/19/25 20:39
Admit/Transfer Patient As Directed
Co-Sign Provider:
Level of Care: Inpatient admission
Assign to:: Telemetry
Physician / Group: Francis
Diagnosis: Sepsis, UTI
Reason for Telemetry: Arrhythmia
Date to Stop Telemetry: 01/22/25
Time to Stop Telemetry: 11:00
Reason for Hospitalization: IVF, IV abx
Expected length of stay greater than two midnights?: Yes
ELOS- Estimated Length of Stay in days: 3
I certify the patient meets the requirements for IP care: Yes
PRN Pain Medication Management As Directed
May give lesser potent ordered pain med per pt: Yes
preference::
Protocol:: Medication orders for pain may be administered in a
manner that supports deferring to patient preference
when the pt is:
- Requesting an ordered lesser potent pain medication.
Least to most potent pain medications are defined
as: acetaminophen < NSAID < tramadol < opioids
(morphine, oxycodone, hydromorphone).
- Requesting a lesser dose of the same medication IF
ORDERED.
- Requesting a less intrusive route of administration
if both routes are prescribed by the provider (PO <
IV).
01/19/25 20:41
Code Status As Directed
Resuscitation Status: Full Code
01/19/25 21:00
0.9% Sodium Chloride 1000 ml [Nss] 1,000 ml IV 80 mls/hr
01/19/25 21:23
Acetaminophen [Tylenol] 650 mg PO Q4HPRN PRN
01/19/25 21:23
Activity As Directed
Activity Level: Out of Bed-Early Mobility
With Assistance
Bladder Scan As Directed
Follow Bladder Retention/Intermittent Cath Algorithm?: Yes
PRN if no void in __ hours: 6
Frequency: Per Retention Algorithm
If Bladder Scan Result >: 400
then:: Straight cath
Straight Cath As Directed
Frequency: Per Retention Algorithm
Additional Instructions: straight cath as needed per acute urinary retention algorithm for 24 hrs
Additional Instructions: for bladder scan greater than 400 mL
Vital Signs As Directed
Frequency: Per unit guidelines
Weight As Directed
Frequency: Daily
Ot Eval And Treat Routine
DX Deep Vein Thrombosis Video Routine
01/19/25 22:00
Baclofen [Lioresal] 5 mg PO TID
HydrALAZINE [Apresoline] 50 mg PO Q8H
Melatonin 5 mg PO HS
Trazodone [Desyrel] 25 mg PO HS
01/20/25 07:15
Basic Metabolic Panel IN AM
Complete Blood Count/No Diff IN AM
01/20/25 08:00
Amlodipine [Norvasc] 5 mg PO BID
Aspirin Chewable [Low Strength Aspirin] 81 mg PO DAILY
Escitalopram Oxalate [Lexapro] 20 mg PO DAILY
Labetalol [Trandate] 100 mg PO BID
Pantoprazole [Protonix] 40 mg PO DAILY
Polyethylene Glycol Powder [Miralax] 17 grams PO DAILY
01/20/25 18:00
Atorvastatin [Lipitor] 40 mg PO QPM
Enoxaparin Sodium [Lovenox] 40 mg SC QPM
01/20/25 20:00
CefTRIAXone [Rocephin] 1,000 mg IV Q24H
01/22/25 11:00
DC Protocol for Telemetry ONCE
Abnormal Lab Results
01/19/25 01/19/25
17:08 17:30
WBC 20.0 H 10^3/uL
(4.8-10.8)
Abs Immat Gran (auto) 0.1 H 10^3/uL
(0-0.05)
Absolute Neuts (auto) 15.1 H 10^3/uL
(1.4-6.5)
Absolute Monos (auto) 2.1 H 10^3/uL
(0.1-0.6)
Absolute Eos (auto) 0.9 H 10^3/uL
(0-0.7)
Neutrophils % 75.4 H %
(42.2-75.2)
Lymphocytes % 8.8 L %
(20.5-51.1)
Monocytes % 10.6 H %
(1.7-9.3)
Glucose 69 L mg/dl
(70-99)
ALT 71 H U/L
(0-50)
Ur Occult Blood Reflex 1+ A
(Negative)
Urine Nitrite (Reflex) Positive A
(Negative)
Leukocyte Esterase Rfl 3+ A
(Negative)
Urine RBC 7-10 A /HPF
(0-2)
Urine WBC (Reflex) 80-90 A /HPF
(0-5)
Urine Bacteria (Reflex) Many A
(Negative)
Urine Albumin (Reflex) 1+ A
(Neg - Trace)
01/19/25 17:08
01/19/25 17:08
Vital Signs
Initial and Last Documented VS:
Initial Vital Signs
Temp Pulse Resp BP Pulse Ox
102.6 F H 90 22 176/116 96
01/19/25 16:49 01/19/25 16:49 01/19/25 16:49 01/19/25 16:49 01/19/25 16:49
Last Documented Vital Signs
Temp Pulse Resp BP Pulse Ox
98.1 F 79 18 137/75 98
01/20/25 15:47 01/20/25 15:47 01/20/25 15:47 01/20/25 15:47 01/20/25 15:47
<Alfreda Salazar EDGING MACHINE FEEDER - Last Filed: 01/20/25 19:37>
*Pulse Oximetry
SaO2: 94
Oxygen Mode of Delivery: Room air
Patient hypoxic: no
*Critical Care Note
Total Time (30-74mins, 75-104mins- exclusive of procedures): Not Applicable
<Alfreda Salazar EDGING MACHINE FEEDER - Last Filed: 01/20/25 19:37>
Update Note
Update Note:
Patient to emergency department for evaluation of fever lethargy shaking chills. Symptoms started today. Temp on arrival was 102.7. He was given 1 g of Tylenol p.o. along with 1LNSS. temp now98.9. He was audibly wheezing tachypneic. He was
given a DuoNeb and 10 mg of Decadron IV with improvement in lung sounds. Chest x-ray reviewed, NAD. Labs reviewed. WBC 2.0 noted. Lactic 1.5. COVID influenza negative . UA reflecting UTI. He was started on ceftriaxone IV will admit to the
hospitalist for UTI,FEver, rigors, weakness.
ED Attending Note
<Alfreda Salazar NP - Last Filed: 01/20/25 19:37>
-
Portions of this chart may have been created with voice recognition software.� Occasional wrong word or��sound alike� substitutions may have occurred due to the inherent limitations of voice recognition software.
<Rosa Fontaine DO - Last Filed: 01/19/25 19:03>
ED Attending Note
Patient seen and examined by attending physician: Yes
I performed the substantive portion of visit, reviewed & personally made and approve the management plan that is documented in note by myself or SHAHID.: Yes
I performed a history and physical exam of patient and discussed management with resident, I reviewed resident's note and agree with documented findings and plan of care.: Yes
ED Attending Note:
59-year-old male with history of stroke with chronic right upper extremity weakness and aphasia presenting to the emergency department for fever and shortness of breath. Patient reports symptoms started today, noticed by mother. Patient was having
chills. Patient however denies specific symptoms. Denies cough or chest pain. Denies abdominal pain. Denies urinary complaints. Denies known sick contacts. Vital signs on arrival significant for fever and tachycardia
On exam, patient in no acute distress, however is slightly tachypneic. Wheezing bilaterally. No tenderness to the abdomen. Chronic weakness of the right upper extremity chronic aphasia. Concern for sepsis, possible pulmonary source. Labs show
leukocytosis, however normal lactic acid. Blood pressure remains stable without concern for septic shock. Urine is positive for UTI. Started patient on IV fluids and antibiotics. Patient given DuoNebs for wheezing. No obvious infiltrate on
chest x-ray. Will continue to monitor from respiratory standpoint. However otherwise feel patient warrants mission for sepsis, likely from urinary source
Discharge Plan
Departure
Patient Disposition: Admit
Date of Disposition: 01/19/25
Time of Disposition: 20:10
Presentation/result/management discussed w/ accepting MD/DO: Hospitalist
Patient with high blood pressure during this ER visit?: No
Condition: Fair
Covid-19: Negative COVID-19
Discharge Problem:
Acute UTI, Fever and chills, Weakness
Interventions
Interventions:
*Risk Screen - Suicide Last Done: 01/19/25 22:00
*General Assessment Last Done: 01/19/25 17:12
*Neglect/Abuse Screening Last Done: 01/19/25 17:12
*ED- Fall Risk Assessment Last Done: 01/19/25 17:12
*ED COVID-19 Vaccine History Last Done: 01/19/25 17:12
*ED Influenza Vaccine History Last Done: 01/19/25 17:12
*Nursing Disposition Last Done: 01/19/25 21:18
ED- Neurological Assessment Last Done: 01/19/25 20:07
ED-Skin Assessment Last Done: 01/19/25 20:11
Discharge Date and Time
Discharge Date/Time: 01/19/25 21:19
[2025-01-19] MEDS: ROCEPHIN 1000 MG IV (20:00)
--- NOTE | 2025-01-19 20:17 | W.PN.UPDATE ---
Addendum entered and electronically signed by Geovanna Blanco MD 01/19/25 23:20:
SBP 130's, will continue to hold KIND[employer]ACHER Amlodipine
continue KINDER TEACHER labetalol, Hydral with hold parameters and re-evaluate BP regimen tomorrow
Original Note:
Update Note
Progress Note Update
This is an addendum to H&P written by SURGICAL LEAD Jacquelyn Howe
I saw and examined the patient.
The SURGICAL LEAD's note was reviewed and I agree with the note.
Comment:
Mr. Carson Santos is a 59 yo man with hx CVA (10/29 with right hemiplegia, facial droop and aphasia), GERD, essential HTN, HLD presents to ER after his mother found him to have fever and shaking chills. Patient lives alone, and his mother assists
with ADL's.
Triage VS: T 102.6, P 90, RR 22, BP 176/116, SpO2 96%
On exam patient is in no acute distress, right hemiparesis from prior stroke, no suprapubic tenderness, no LE swelling
LABS: WBC 20, Hg 14.8, PLT 299, Na 137, K+ 4.2, CO2 25, BUN 13, Cr 0.7, Glucose 69, T. Bili 0.9, AST 48, ALT 71, Alk Phos 88
Lactate 1.5
CXR
IMPRESSION:
No acute cardiopulmonary process.
UA with 80-90 WBC
Covid and Flu negative
Sepsis 2/2 UTI
-admit to telemetry
-IV Ceftriaxone
-IVF
-follow up cultures
Hx CVA
-KINDER TEACHER asa/statin
Essential HTN
-normotensive in ER
-KINDER TEACHER home regimen with hold parameters
Hypoglycemia
-patient ate a sandwich post labs
Remainder of plan per PA note
DVT PPx
FULL CODE
76 minutes spent on patient care
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
[2025-01-19] MEDS: APRESOLINE 50 MG PO (21:51)
[2025-01-19] MEDS: LIORESAL 5 MG PO (21:53)
[2025-01-19] MEDS: MELATONIN 5 MG PO (21:53)
[2025-01-19] MEDS: DESYREL 25 MG PO (21:53)
[2025-01-20] VITALS (8 sets, daily range): BP systolic 124–147; BP diastolic 72–80; PULSE 85–87; O2SAT 94–95; BMI 27.6
[2025-01-20] MEDS: APRESOLINE 50 MG PO ×3 (05:53→23:55)
[2025-01-20 08:04] LABS: Hematocrit 39.7 % (39.0-52.0); Hemoglobin 13.9 g/dL (13.0-18.0); Mean Corp Hgb Conc. 35.0 g/dL (33.0-37.0); Mean Corpuscular Volume 91.1 fL (80.0-94.0); Platelet Count 312 10^3/uL (130-400); Red Cell Dist. Width 12.4 % (11.5-14.5)
[2025-01-20 08:37] LABS: Blood Urea Nitrogen 16 mg/dl (9-20); Calcium 9.2 mg/dl (8.4-10.2); Carbon Dioxide 22 mmol/L (22-30); Chloride 108 mmol/L (98-107); Estimated Creatinine Clearance 108 ml/min; Glucose 133 mg/dl (70-99); Potassium 4.4 mmol/L (3.5-5.1); Sodium 138 mmol/L (135-145); eGFR > 60.00
[2025-01-20] MEDS: LOW STRENGTH ASPIRIN 81 MG PO (10:08)
[2025-01-20] MEDS: LIORESAL 5 MG PO ×3 (10:08→23:56)
[2025-01-20] MEDS: PROTONIX 40 MG PO (10:08)
[2025-01-20] MEDS: LEXAPRO 20 MG PO (10:09)
[2025-01-20] MEDS: TRANDATE 100 MG PO ×2 (10:09→20:27)
[2025-01-20] MEDS: MIRALAX 17 GRAMS PO (10:09)
[2025-01-20] MEDS: NSS 1000 IV ×2 (10:10→23:55)
--- NOTE | 2025-01-20 13:18 | W.PN.HOSP.TC ---
Addendum entered and electronically signed by Shaan Barrera MD 01/21/25 16:15:
Right hemiparesis due to old CVA
Addendum entered and electronically signed by Shaan Barrera MD 01/21/25 14:03:
Techanically considered a complicated UTI due to the fact he is septic and a male. Hence why will treat for longer course. If conitnues to recur may need outpatient urologic services to eval
Original Note:
Today's Communication/Plan
-
Assessment / Plan
Assessment / Plan
NAD, sitting on bed comfortably eating breakfast
Scleral Anicteric, aphasic
MMM
No JVD
CTABL
RRR, S1/S2
Soft, NT, ND, BS+
Warm, Dry
AAOx3
Calm
Sepsis secondary to E. coli UTI
Continue Rocephin
Await sensitivities
We do not have blood cultures
- If decompensate we will order blood cultures at that time
History of ischemic CVA with residual right-sided deficits
Continue aspirin statin baclofen
Hypertension
Continue antihypertensives
Depression and insomnia
Continue Lexapro melatonin trazodone
Anticipated Discharge: 24 - 48 hours
Subjective/Interval History
-
Date of Service: January 20, 2025
Seen and examined. No new complaints. No acute overnight event
Objective Data
-
Labs:
Laboratory Results
01/20/25
07:15
WBC 22.6 H
Hgb 13.9
Hct 39.7
Plt Count 312
Sodium 138
Potassium 4.4
Chloride 108 H
Carbon Dioxide 22
BUN 16
Creatinine 0.8
Glucose 133 H
Calcium 9.2
Vital Signs:
Vital Signs
Temp Pulse Resp BP Pulse Ox
97.7 F 75 18 126/74 94
01/20/25 11:13 01/20/25 11:13 01/20/25 11:13 01/20/25 11:13 01/20/25 11:13
I&O
01/19/25 01/20/25 01/21/25
06:59 06:59 06:59
Intake Total 0 / 0
Balance 0 / 0
--- NOTE | 2025-01-20 15:04 | CM ---
Met with patient and bedside and with his permission, called and spoke with his mother, Ilda
Family Physician: Chepe Lizama MD; [facility]; [address], [place] [address]
Pharmacy verified: [facility] @ [address] [place] [address], [place], [place]
Patient lives alone; [place]ancher w/ basement; lives on first floor; does not go down the basement.
Mother reported that patient had a Stroke on September 03 this year; went to [facility] for acute rehab; then to SNF @ [facility] in [place]. Started [facility] PT/OT; Speech therapy is also planned
PLOF: ambulates w/ cane; mother assists with personal care and ADLs; not driving
Mother will transport home when stable
Plan: Discharge to home when medically stable
[2025-01-20] MEDS: LOVENOX 40 MG SC (17:12)
[2025-01-20] MEDS: LIPITOR 40 MG PO (17:12)
[2025-01-20] MEDS: STERILE WATER FOR INJECTION 10 ML IV (20:26)
[2025-01-20] MEDS: ROCEPHIN 1000 MG IV (20:27)
[2025-01-20] MEDS: FLUSH (NSS) 1 FLUSH IV (20:29)
[2025-01-20] MEDS: DESYREL 25 MG PO (23:56)
[2025-01-20] MEDS: MELATONIN 5 MG PO (23:56)
[2025-01-21 03:05] VITALS: BP 138/85
[2025-01-21] MEDS: APRESOLINE 50 MG PO ×2 (05:42→14:19)
[2025-01-21 06:00] VITALS: BMI 28.0
[2025-01-21 07:00] VITALS: BP 143/88
[2025-01-21] MEDS: MIRALAX 17 GRAMS PO (08:22)
[2025-01-21] MEDS: PROTONIX 40 MG PO (08:23)
[2025-01-21] MEDS: LEXAPRO 20 MG PO (08:23)
[2025-01-21] MEDS: LIORESAL 5 MG PO (08:23)
[2025-01-21] MEDS: LOW STRENGTH ASPIRIN 81 MG PO (08:23)
[2025-01-21] MEDS: TRANDATE 100 MG PO (08:23)
--- NOTE | 2025-01-21 09:24 | PN.CDI ---
CDI
- -
CDI:
Physician Documentation Request
Admit Date: 01/19/25 21:12
Dear Doctor Bruce,
Patient admitted with sepsis.
01/20 PN, 'History of ischemic CVA with residual right-sided deficits.'
01/20 Rehab panel, 'RLE strength 4+5/5, ankle strength'
Please provide in your note the type of residual right-sided deficits:
Right hemiparesis due to old CVA
Right sided deficits only
Other
Use of terms such as suspected, likely, concern for, or probable (associated with a specific diagnosis that is being evaluated, monitored, or treated as if it exists) are acceptable and can be coded in the inpatient setting, when documented at the
time of discharge.
Thank you,
Jennifer MARTINEZN,RN,CCDS
CDI Specialist
Available via [place] text
Please use your independent medical judgment in providing your response.
[2025-01-21 10:08] LABS: Hematocrit 36.8 % (39.0-52.0); Hemoglobin 12.3 g/dL (13.0-18.0); Mean Corp Hgb Conc. 33.4 g/dL (33.0-37.0); Mean Corpuscular Volume 92.2 fL (80.0-94.0); Platelet Count 264 10^3/uL (130-400); Red Cell Dist. Width 13.0 % (11.5-14.5)
[2025-01-21 10:25] LABS: Blood Urea Nitrogen 17 mg/dl (9-20); Calcium 8.7 mg/dl (8.4-10.2); Carbon Dioxide 24 mmol/L (22-30); Chloride 109 mmol/L (98-107); Estimated Creatinine Clearance 108 ml/min; Glucose 140 mg/dl (70-99); Potassium 3.8 mmol/L (3.5-5.1); Sodium 138 mmol/L (135-145); eGFR > 60.00
--- NOTE | 2025-01-21 13:35 | W.DCSUMMARY ---
Discharge Summary
Discharge Data
Date of Admission: 01/19/25
Date of Discharge: 01/21/25
-
Pending Results: No
Hospital Course
59 y/o male past medical history of prior ischemic stroke with residual right sided deficits and hypertension
Presented with fevers and chills found to have a E. coli UTI. Last afebrile on 01/19. Improving white count throughout this hospitalization. Was started on Rocephin and transition to home cefdinir 300 mg twice a day x 7 additional days.
Outpatient PCP follow-up.
CXR
IMPRESSION:
No acute cardiopulmonary process.
Seen and examined on the day of discharge. No new complaints. No acute overnight events.
NAD
Scleral Anicteric
MMM, aphasic
No JVD
CTABL
RRR, S1/S2
Soft, NT, ND, BS+
Warm, Dry
AAOx2
Calm
More than 30 minutes spent in discharge including
Final examination of the patient
Summarizing hospital stay
Instructions for continuing care to all relevant caregivers
Preparation of discharge records, prescriptions, and referral forms
Total time spent (in minutes): 33mins
Discharge Plan
-
Patient Disposition: Home (Routine Discharge)
Discharge Diagnosis/Procedures: UTI - EColi
Activity Restrictions/Additional Instructions:
Presented with fevers and chills found to have a E. coli UTI. Last afebrile on 01/19. Improving white count throughout this hospitalization. Was started on Rocephin and transition to home cefdinir 300 mg twice a day x 7 additional days.
Outpatient PCP follow-up.
CXR
IMPRESSION:
No acute cardiopulmonary process.
Referrals:
Chepe Lizama MD [Family Provider, Family Practice]
UNKNOWN - PT DOES,NOT KNOW [Unknown Provider]
Prescriptions:
New
cefdinir 300 mg capsule
300 mg PO BID Qty: 14 0RF
Continued
escitalopram oxalate 20 mg tablet
20 mg PO DAILY
trazodone 50 mg tablet
25 mg PO HS
atorvastatin 40 mg Tablet
40 mg PO QPM Qty: 30 0RF
amlodipine 5 mg Tablet
5 mg PO BID Qty: 60 0RF
aspirin 81 mg Tablet,Chewable
81 mg PO DAILY Qty: 30 0RF
hydralazine 50 mg Tablet
50 mg PO Q8H Qty: 30 0RF
labetalol 100 mg Tablet
100 mg PO BID Qty: 60 0RF
baclofen 5 mg Tablet
5 mg PO TID Qty: 90 0RF
polyethylene glycol 3350 17 gram Powder In Packet
17 g PO DAILY Qty: 30 0RF
pantoprazole 40 mg Tablet,Delayed Release (Dr/Ec)
40 mg PO DAILY Qty: 60 0RF
melatonin 5 mg Tablet
5 mg PO HS Qty: 60 0RF
Discharge Orders:
Discharge Patient (As Directed); Ordered 01/21/25
Ordered By: Shaan Barrera
Discharge Date and Time
Print Language: EMIRATI
[2025-01-21 14:15] VITALS: BP 124/73
--- NOTE | 2025-01-21 16:02 | CM ---
MD entered order for discharge .
Spoke with patient and his . Both agreed with dc to home.
Mon said she would renew his out pt PT .Declined VN.
Mom drove patient home.
PLAN Home no needs
== END 2025-01-21 14:55 | disposition home or self-care (01) | DRG 872 ==
LOC: 4 EAST ACU 21:12
PROVIDERS: Nurse Practitioner; Physician Assistant Medical; ADMITTING PHYSICIAN Student in an Organized Health Care Education/Training Program; ATTENDING PHYSICIAN Hospitalist; EMERGENCY PHYSICIAN Student in an Organized Health Care Education/Training Program; FAMILY PHYSICIAN Family Medicine
DX: A41.9 Sepsis, unspecified organism (principal); N39.0 Urinary tract infection, site not specified; G81.91 Hemiplegia, unspecified affecting right dominant side; B96.20 Unspecified Escherichia coli [E. coli] as the cause of diseases classified elsewhere; I10 Essential (primary) hypertension; Z11.52 Encounter for screening for COVID-19; Z79.82 Long term (current) use of aspirin; K21.9 Gastro-esophageal reflux disease without esophagitis; E78.00 Pure hypercholesterolemia, unspecified; F17.200 Nicotine dependence, unspecified, uncomplicated; F32.A Depression, unspecified; G47.00 Insomnia, unspecified
CPT/HCPCS: 71046; 80048; 80053; 81003; 81015; 83605; 85025; 85027; 87040; 87086; 87088; 87186; 87502; 87811; 94640; 96361; 96374; 96375; 97162; 97166; 99285

== ENCOUNTER 2025-02-04 08:32 | Outpatient (RCR) | payer OTHER, SELFPAY | END 2025-02-04 23:59 | disposition home or self-care (01) | LOC: RST 08:32 | PROVIDERS: ATTENDING PHYSICIAN Registered Nurse Critical Care Medicine; FAMILY PHYSICIAN Internal Medicine | DX: I69.392 Facial weakness following cerebral infarction (principal); I69.312 Visuospatial deficit and spatial neglect following cerebral infarction; I69.320 Aphasia following cerebral infarction; I69.351 Hemiplegia and hemiparesis following cerebral infarction affecting right dominant side; I69.318 Other symptoms and signs involving cognitive functions following cerebral infarction; Z73.6 Limitation of activities due to disability | CPT/HCPCS: 92507; 92523; 97010; 97014; 97110; 97112; 97116; 97140; 97163; 97164; 97167; 97168; 97530; 97535; 97760 ==

== ENCOUNTER 2025-03-04 07:02 | Outpatient (RCR) | payer OTHER, SELFPAY | END 2025-03-04 23:59 | disposition home or self-care (01) | LOC: RST 07:02 | PROVIDERS: ATTENDING PHYSICIAN Registered Nurse Critical Care Medicine; FAMILY PHYSICIAN Internal Medicine | DX: I69.392 Facial weakness following cerebral infarction (principal); I69.312 Visuospatial deficit and spatial neglect following cerebral infarction; I69.320 Aphasia following cerebral infarction; I69.351 Hemiplegia and hemiparesis following cerebral infarction affecting right dominant side; I69.318 Other symptoms and signs involving cognitive functions following cerebral infarction; Z73.6 Limitation of activities due to disability; I69.390 Apraxia following cerebral infarction | CPT/HCPCS: 92507; 97010; 97014; 97110; 97112; 97116; 97140; 97530; 97535 ==

== ENCOUNTER 2025-04-05 08:39 | Outpatient (RCR) | payer OTHER, SELFPAY | END 2025-04-05 23:59 | disposition home or self-care (01) | LOC: RST 08:39 | PROVIDERS: ATTENDING PHYSICIAN Registered Nurse Critical Care Medicine; FAMILY PHYSICIAN Internal Medicine | DX: I69.392 Facial weakness following cerebral infarction (principal); I69.312 Visuospatial deficit and spatial neglect following cerebral infarction; I69.320 Aphasia following cerebral infarction; I69.351 Hemiplegia and hemiparesis following cerebral infarction affecting right dominant side; I69.318 Other symptoms and signs involving cognitive functions following cerebral infarction; Z73.6 Limitation of activities due to disability; I69.390 Apraxia following cerebral infarction | CPT/HCPCS: 92507; 97014; 97110; 97112; 97116; 97140; 97530; 97535 ==